=== PATIENT | female | born 1965 | race Caucasian/White ===

== ENCOUNTER 2017-05-26 06:03 | Emergency (ER) | payer OTHER ==
[~2017-05-26] VITALS: Ht 160 cm; Wt 77.1 kg
--- OUTSIDE RECORDS SUMMARY | 2017-05-26 06:12 | XMS REPORT ---
Author Author SHAQUILLE BEAN Organization [employer] Address Unknown Phone Unavailable Care Team Providers Care Supplies Packer Name Role Phone SHAQUILLE BEAN CP Unavailable Allergies, Adverse Reactions, Alerts Substance Reaction Event Type N.K.D.A. Info Not Available Non Drug Allergy Problems Problem Type Condition Code Onset Dates Condition Status Problem Left-sided low back pain with left-sided sciatica M54.42 Active Assessment Essential hypertension I10 Active Problem Essential hypertension I10 Active Medications Medication Code System Code Instructions Start Date End Date Status Dosage VitaMelts Vitamin C [facility] [address]15 60 MG Orally not defined Multi-Vitamin Gummies [facility] [address]010 - Orally not defined Metoprolol Tartrate [facility] [address]-81 25 MG Orally Twice a day 1/ 2 tablet Ranitidine Acid Coat Cutter [facility] [address]-98 150 Orally Twice a day 1 tablet as needed Estroven ND 0 not defined Procedures Procedure Coding System Code Date Office Visit, Est Pt., Level 3 CPT-4 75587 Feb 02, 2016 Vital Signs Date/Time: Feb 02, 2016 Cardiac Monitoring Heart Rate 72 bpm Weight 181.2 lbs Height 63 in BMI 32.09 Index Blood Pressure Diastolic 66 mmHg Blood Pressure Systolic 118 mmHg Results No Known Results Summary Purpose [employer] Submission
--- OUTSIDE RECORDS SUMMARY | 2017-05-26 06:12 | XMS REPORT ---
Author Author LUZMA ADKINS Organization [facility] Address [address] [place] [address] Care Team Providers Care Room Cooler Installer Name Role Phone LUZMA ADKINS Unavailable PROBLEMS Type Condition ICD9-CM Code [id number] Code Onset Dates Condition Status SNOMED Code Problem Essential hypertension I10 Active 42666385 Problem Left-sided low back pain with left-sided sciatica M54.42 Active 774025281 ALLERGIES Substance Reaction Event Type Date Status N.K.D.A. Unknown Non Drug Allergy Mar, Unknown SOCIAL HISTORY No smoking Hx information available PLAN OF CARE Activity Details Follow Up 1 Week Reason:if s/s worsen, off work until Friday VITAL SIGNS Height 63 in 2016-04-01 Weight 185.2 lbs 2016-04-01 Temperature 98.7 degrees Fahrenheit 2016-04-01 Heart Rate 75 bpm 2016-04-01 Respiratory Rate 18 2016-04-01 BMI 32.80 kg/m2 2016-04-01 Blood pressure systolic 128 mmHg 2016-04-01 Blood pressure diastolic 70 mmHg 2016-04-01 MEDICATIONS Medication Instructions Dosage Frequency Start Date End Date Duration Status Metoprolol Tartrate 25 MG Orally Twice a day 1/2 tablet 12h Active VitaMelts Vitamin C 60 MG Active Claritin 10 mg Orally Once a day 1 tablet 24h Mar, Active Ranitidine Acid Asbestos Surveyor 150 Orally Twice a day 1 tablet as needed 12h Active Estroven Active Multi-Vitamin Gummies - Active RESULTS Name Result Date Reference Range STREP A (IN HOUSE) 2016-04-01 STREP A negative Control positive Lot # [id number] Exp date 10/04/15 PROCEDURES Procedure Date Ordered Related Diagnosis Body Site STREP A ASSAY W/OPTIC Apr 01, 2016 Office Visit, Est Pt., Level 3 Apr 01, 2016 IMMUNIZATIONS No Known Immunizations
--- OUTSIDE RECORDS SUMMARY | 2017-05-26 06:12 | XMS REPORT ---
Author Author SHAQUILLE BEAN [facility] Address [address] [place] [address] Care Team Providers Care Food Service Aide Name Role Phone SHAQUILLE BEAN Unavailable PROBLEMS Type Condition ICD9-CM Code FLY35-CS Code Onset Dates Condition Status SNOMED Code Problem Essential hypertension I10 Active 87047194 Problem Left-sided low back pain with left-sided sciatica M54.42 Active 641501808 ALLERGIES No Known Allergies SOCIAL HISTORY No smoking Hx information available PLAN OF CARE VITAL SIGNS MEDICATIONS No Known Medications RESULTS No Results PROCEDURES No Known procedures IMMUNIZATIONS No Known Immunizations
--- OUTSIDE RECORDS SUMMARY | 2017-05-26 06:12 | XMS REPORT ---
Author Author SHAUQILLE BEAN [facility] Address [address] [place] [address] Care Team Providers Care Lay Out Technician Name Role Phone SHAQUILLE BEAN Unavailable PROBLEMS Type Condition ICD9-CM Code LME27-SP Code Onset Dates Condition Status SNOMED Code Problem Essential hypertension I10 Active 83053484 Problem Left-sided low back pain with left-sided sciatica M54.42 Active 477986063 ALLERGIES No Information SOCIAL HISTORY Never Assessed PLAN OF CARE VITAL SIGNS MEDICATIONS No Known Medications RESULTS Name Result Date Reference Range CBC 2016-08-26 WBC 9.1 3.4-10.8 RBC 4.90 3.77-5.28 Hemoglobin 13.2 11.1-15.9 Hematocrit 42.1 34.0-46.6 MCV 86 79-97 MCH 26.9 26.6-33.0 MCHC 31.4 31.5-35.7 RDW 13.5 12.3-15.4 Platelets 249 150-379 Neutrophils 67 Lymphs 24 Monocytes 6 Eos 3 Basos 0 Immature Cells Neutrophils (Absolute) 6.2 1.4-7.0 Lymphs (Absolute) 2.2 0.7-3.1 Monocytes(Absolute) 0.5 0.1-0.9 Eos (Absolute) 0.2 0.0-0.4 Baso (Absolute) 0.0 0.0-0.2 Immature Granulocytes 0 Immature Grans (Abs) 0.0 0.0-0.1 NRBC Hematology Comments: LIPID PANEL 2016-08-26 Cholesterol, Total 173 100-199 Triglycerides 146 0-149 HDL Cholesterol 56 >39 VLDL Cholesterol Javier 29 5-40 LDL Cholesterol Calc 88 0-99 Comment: CMP 2016-08-26 Glucose, Serum 98 65-99 BUN 14 6-24 Creatinine, Serum 0.58 0.57-1.00 eGFR If NonAfricn Am 109 >59 eGFR If Africn Am 126 >59 BUN/Creatinine Ratio 24 9-23 Sodium, Serum 139 134-144 Potassium, Serum 4.5 3.5-5.2 Chloride, Serum 101 96-106 Carbon Dioxide, Total 25 18-29 Calcium, Serum 9.2 8.7-10.2 Protein, Total, Serum 6.5 6.0-8.5 Albumin, Serum 4.2 3.5-5.5 Globulin, Total 2.3 1.5-4.5 A/G Ratio 1.8 1.2-2.2 Bilirubin, Total 0.3 0.0-1.2 Alkaline Phosphatase, S 56 39-117 AST (SGOT) 17 0-40 ALT (SGPT) 20 0-32 PROCEDURES Procedure Date Ordered Result Body Site LIPID PANEL August 26, 2016 COMPREHEN METABOLIC PANEL August 26, 2016 VENIPUNCT, ROUTINE* August 26, 2016 IMMUNIZATIONS No Known Immunizations MEDICAL (GENERAL) HISTORY Type Description Date Medical History heart murmur Medical History hypertension Surgical History appendectomy Surgical History cholecystectomy Surgical History tubal ligation Hospitalization History surgeries
--- OUTSIDE RECORDS SUMMARY | 2017-05-26 06:12 | XMS REPORT ---
Author Author Eliazar Chanel [facility] Address [address] [place], [place] [address] Care Team Providers Care Snack Bar Attendant Name Role Phone Eliazar Chanel PCP Unavailable Allergies and Adverse Reactions Name Reaction Notes NO KNOWN DRUG ALLERGIES Plan of Treatment Not available. Medications Active Name Start Date Estimated Completion Date SIG Comments Excedrin Migraine 250-250-65 mg oral tablet take 1 tablet by oral route daily Zantac 150 mg oral tablet take 1 tablet (150 mg) by oral route 2 times per day Women's Multivitamin Gummies 200 mcg oral tablet,chewable chew 2 tablets by oral route daily Estroven Mood & Memory 400 mcg oral tablet take 1 tablet by oral route daily Garcinia Cambogia 200-500 mcg-mg oral tablet take 2 tablets by oral route 2 times a day melatonin 3 mg oral tablet take 1 tablet by oral route daily diclofenac sodium 75 mg oral tablet,delayed release (DR/EC) 05/03/2015 take 1 tablet (75 mg) by oral route 2 times per day with food metoprolol tartrate 25 mg oral tablet 05/03/2015 10/30/2015 take 1/2 tablet by oral route twice daily for 30 days Name Start Date Expiration Date SIG Comments acebutolol 200 mg oral capsule 11/23/2009 12/23/2009 TAKE 1 CAPSULE BY MOUTH TWO TIMES A DAY metoprolol succinate 25 mg oral tablet extended release 24 hr 01/25/20112010 TAKE ONE TABLET BY MOUTH EVERY DAY alprazolam 0.5 mg oral tablet 01/25/2011 02/04/2011 TAKE ONE-HALF TO ONE TABLET BY MOUTH TWICE DAILY NEEDED Discontinued Name Start Date Discontinued Date SIG Comments metoprolol tartrate Oral 09/06/2010 metoprolol tartrate 25 mg oral tablet 12/13/2010 take 1/2 tablet (12.5 mg ) by oral route twice daily meloxicam 7.5 mg oral tablet 12/13/2010 01/22/2011 take 1 tablet by oral route 2 times a day with food diclofenac sodium 75 mg oral tablet,delayed release (DR/EC) 01/22/20112015 take 1 tablet (75 mg) by oral route 2 times per day Problem List Description Status Onset Anxiety Disorder Active Palpitations Active Cardiac murmur Active Vital Signs Date Time BP-Sys(mm[Hg] BP-Serena(mm[Hg]) HR(bpm) RR(rpm) Temp WT HT HC BMI BSA BMI Percentile O2 Sat(%) 05/03/2015 9:57:00 AM 130 mmHg 72 mmHg 69 bpm 20 rpm 98.2 F 190 lbs 63 in 33.66 kg/m2 1.96 m2 97 % 12/13/2010 8:44:00 AM 130 mmHg 74 mmHg 72 bpm 18 rpm 98.2 F 170 lbs 63 in 30.1138 kg/m 1.8514 m 09/06/2010 8:31:00 AM 130 mmHg 72 mmHg 68 bpm 16 rpm 99.1 F 171.5 lbs 10/17/2009 2:14:00 PM 112 mmHg 70 mmHg 72 bpm 18 rpm 99 F 162 lbs 63 in 28.6967 kg/m 1.8073 m Social History Name Description Comments Tobacco Former smoker stopped 10/22/10 Alcohol Use - Occasional 3-4 drinks per month Grown Children x2 Children Living with significant other x 7 yrs 3 times High school 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 degree experimented with illicit drugs in past Did not serve in UNEMPLOYEED History of Procedures Date Ordered Description Order Status 12/13/2010 12:00 AM LIPID PANEL Reviewed 12/13/2010 12:00 AM COMPREHEN METABOLIC PANEL Reviewed 12/13/2010 12:00 AM ASSAY OF TOTAL THYROXINE Reviewed 12/13/2010 12:00 AM ASSAY THYROID STIM HORMONE Reviewed 05/03/2015 12:00 AM RADEX HIP UNILATERAL COMPLETE MINIMUM 2 VIEWS Reviewed 10/17/2009 12:00 AM ASSAY OF GONADOTROPIN (LH) Reviewed 09/06/2010 12:00 AM CYTOPATH C/V THIN LAYER Reviewed 09/06/2010 12:00 AM MAMMOGRAM SCREENING Reviewed Results Summary Data and Description Results 12/13/2010 9:25 AM TRIGLYCERIDES 129.0 mg/dLCHOLESTEROL 217.0 mg/dLHDL 49.0 mg/ dLLDL (CALC) 142.0 mg/dLT4 7.40 ug/dLTSH 0.990 uIU/mLGLUCOSE 99.0 mg/dLSODIUM 139.0 mmol/LPOTASSIUM 4.50 mmol/LCHLORIDE 107.0 mmol/LCO2 23.0 mmol/LBUN 9.0 mg/ dLCREATININE 0.70 mg/dLSGOT/AST 22.0 IU/LSGPT/ALT 29.0 IU/LALK PHOS 62.0 IU/ LTOTAL PROTEIN 7.20 g/dLALBUMIN 4.40 g/dLTOTAL BILI 0.40 mg/dLCALCIUM 9.50 mg/ dLeGFR >60 mL/min/1.73 m2 History Of Immunizations Not available. History of Past Illness Name Date of Onset Comments Anxiety Disorder Palpitations Dysmenorrhea Oct 17 2009 2:17PM Left Eustachian Tube Dysfunction Oct 17 2009 2:17PM Tobacco use disorder Oct 17 2009 2:17PM Mitral Valve Prolapse Oct 17 2009 2:17PM Cardiac murmur Routine gynecological examination Sep 06 2010 8:31AM Palpitations Dec 13 2010 8:42AM Myalgia Dec 13 2010 8:42AM Left hip pain May 03 2015 9:59AM Payers Insurance Name Company Name Plan Name Plan Number Policy Number Policy Group Number Start Date [facility] [employer] [facility] [employer] [id number] N/A [employer] [id number] August History of Encounters Visit Date Visit Type Provider 05/03/2015 Office visit Eliazar Chanel DO 12/13/2010 Office visit Eliazar Chanel DO 09/06/2010 Office visit Patricia APARICIO 10/17/2009 Office visit Eliazar Chanel DO
--- OUTSIDE RECORDS SUMMARY | 2017-05-26 06:12 | XMS REPORT ---
Author Author SHAQUILLE BEAN [facility] Address [address] [place] [address] Care Team Providers Care Bridal Stylist Sales Consultant Name Role Phone SHAQUILLE BEAN Unavailable PROBLEMS Type Condition ICD9-CM Code [id number] Code Onset Dates Condition Status SNOMED Code Problem Essential hypertension I10 Active 82781074 Problem Left-sided low back pain with left-sided sciatica M54.42 Active 632419653 ALLERGIES No Known Allergies SOCIAL HISTORY No smoking Hx information available PLAN OF CARE VITAL SIGNS MEDICATIONS Medication Instructions Dosage Frequency Start Date End Date Duration Status Zostavax 02934 UNT/0.65ML as directed Apr, 1 dose Active RESULTS No Results PROCEDURES No Known procedures IMMUNIZATIONS No Known Immunizations
--- OUTSIDE RECORDS SUMMARY | 2017-05-26 06:12 | XMS REPORT ---
Author Eliazar De La Vega [facility] Address [address] [place], [place] [address] Care Team Providers Care Biomass Boiler Operator Name Role Phone Eliazar Chanel PCP Unavailable Allergies and Adverse Reactions Name Reaction Notes NO KNOWN DRUG ALLERGIES Plan of Treatment Planned Activity Comments Planned Date Planned Time Plan/Goal MRI LUMBAR SPINE W/O DYE 05/18/2015 12:00 AM Medications Active Name Start Date Estimated Completion [...] oral route twice daily for 30 days tramadol 50 mg oral tablet 05/18/2015 take 1 tablet by oral route every 8 hours as needed gabapentin 100 mg oral capsule 05/18/2015 take 1 capsule (100 mg) by oral route at bedtime for 1 week then 2 capsules at bedtime Name Start Date Expiration Date SIG Comments [...] Left hip pain May 03 2015 9:59AM Radiating back pain May 18 2015 12:23PM Payers Insurance Name Company Name Plan Name Plan Number Policy Number Policy Group Number Start Date [facility] [id number] N/A [employer] [id number] August History of Encounters Visit Date Visit Type Provider 05/03/2015 Office visit Eliazar Chanel DO 12/13/2010 Office visit Eliazar Chanel DO 09/06/2010 Office visit Patricia APARICIO 10/17/2009 Office visit Eliazar Chanel DO
--- OUTSIDE RECORDS SUMMARY | 2017-05-26 06:13 | XMS REPORT ---
Author Author SHAQUILLE BEAN [facility] Address [address] [place] [address] Care Team Providers Care Licensed Chemical Spray Technician Name Role Phone SHAQUILLE BEAN Unavailable PROBLEMS Type Condition ICD9-CM Code NMQ19-XV Code Onset Dates Condition Status SNOMED Code Problem Essential hypertension I10 Active 91473108 Problem Left-sided low back pain with left-sided sciatica M54.42 Active 813508945 ALLERGIES No Known Allergies SOCIAL HISTORY No smoking Hx information available PLAN OF CARE VITAL SIGNS MEDICATIONS No Known Medications RESULTS No Results PROCEDURES No Known procedures IMMUNIZATIONS No Known Immunizations
--- OUTSIDE RECORDS SUMMARY | 2017-05-26 06:13 | XMS REPORT ---
Author Author Eliazar Chanel [facility] Address [address] [place], [place] [address] Care Team Providers Care Track Maintainer Name Role Phone Eliazar Chanel PCP Unavailable [...] Policy Number Policy Group Number Start Date [facility] [employer] [facility] [employer] [id number] N/A [employer] [id number] August History of Encounters Visit Date Visit Type Provider 05/03/2015 Office visit Eliazar Chanel DO 12/13/2010 Office visit Eliazar Chanel DO 09/06/2010 Office visit Patricia APARICIO 10/17/2009 Office visit Eliazar Chanel DO
--- OUTSIDE RECORDS SUMMARY | 2017-05-26 06:13 | XMS REPORT | Continuity of Care Document ---
Author Author [facility] Organization [facility] Address Unknown Phone Unavailable Allergies There is no data. Medications There is no data. Problems Date Dx Coded Attending Type Code Diagnosis Diagnosed By 07/04/2015 KELLY LEONARD APRN Ot Z12.31 Procedures There is no data. Results There is no data. Encounters ACCT No. Visit Date/Time Discharge Status Pt. Type Provider Facility Loc./Unit Complaint [id number] 05/03/2015 10:24:56 05/03/2015 23:59:59 [facility] Outpatient Darío Eliazar [id number] 07/04/2015 10:05:00 07/04/2015 23:59:59 [facility] Outpatient KELLY LEONARD APRN [facility] RAD
--- OUTSIDE RECORDS SUMMARY | 2017-05-26 06:13 | XMS REPORT ---
Author Author YOLIE VIDAL Organization [facility] Address [address] [place] [address] Care Team Providers Care Sand Miller Name Role Phone YOLIE VIDAL Unavailable PROBLEMS Type Condition ICD9-CM Code NAR71-KY Code Onset Dates Condition Status SNOMED Code Problem Essential hypertension I10 Active 15192480 Problem Left-sided low back pain with left-sided sciatica M54.42 Active 462241150 Assessment Gastric reflux K21.9 Dec, Active 955028807 Assessment Throat pain R07.0 Dec, Active 477608232 ALLERGIES Substance Reaction Event Type Date Status N.K.D.A. Unknown Non Drug Allergy Dec, Unknown SOCIAL HISTORY No smoking Hx information available PLAN OF CARE VITAL SIGNS Height 63 in 2015-12-28 Weight 183 lbs 2015-12-28 Heart Rate 70 bpm 2015-12-28 Respiratory Rate 16 2015-12-28 BMI 32.41 kg/m2 2015-12-28 Blood pressure systolic 124 mmHg 2015-12-28 Blood pressure diastolic 68 mmHg 2015-12-28 MEDICATIONS Medication Instructions Dosage Frequency Start Date End Date Duration Status Metoprolol Tartrate 25 MG Orally Twice a day 1/2 tablet 12h Active Estroven Active RESULTS Name Result Date Reference Range TSH W/ FREE T4 2015-12-28 TSH 1.750 0.450-4.500 T4,Free(Direct) 1.04 0.82-1.77 H PYLORI (IN HOUSE) 2015-12-28 H. PYLORI negative Control + Lot # [id number] Exp date 08/2016 PROCEDURES Procedure Date Ordered Related Diagnosis Body Site ASSAY THYROID STIM HORMONE Dec 28, 2015 ASSAY OF FREE THYROXINE Dec 28, 2015 Office Visit, Est Pt., Level 3 Dec 28, 2015 VENIPUNCT, ROUTINE* Dec 28, 2015 IMMUNOASSAY,INFECTIOUS AGENT Dec 28, 2015 IMMUNIZATIONS No Known Immunizations
--- OUTSIDE RECORDS SUMMARY | 2017-05-26 06:13 | XMS REPORT ---
Author Author YOLIE VIDAL Organization [facility] Address [address] [place] [address] Care Team Providers Care Customer Specialist Name Role Phone YOLIE VIDAL Unavailable PROBLEMS Type Condition ICD9-CM Code [id number] Code Onset Dates Condition Status SNOMED Code Problem Essential hypertension I10 Active 95567604 Problem Left-sided low back pain with left-sided sciatica M54.42 Active 564509918 ALLERGIES Substance Reaction Event Type Date Status N.K.D.A. Unknown Non Drug Allergy Mar, Unknown SOCIAL HISTORY No smoking Hx information available PLAN OF CARE Activity Details Follow Up prn Reason: VITAL SIGNS Height 63 in 2016-04-11 Weight 186.4 lbs 2016-04-11 Temperature 98.5 degrees Fahrenheit 2016-04-11 Heart Rate 68 bpm 2016-04-11 Respiratory Rate 20 2016-04-11 Oximetry 96 % 2016-04-11 BMI 33.02 kg/m2 2016-04-11 Blood pressure systolic 124 mmHg 2016-04-11 Blood pressure diastolic 70 mmHg 2016-04-11 MEDICATIONS Medication Instructions Dosage Frequency Start Date End Date Duration Status Claritin 10 mg Orally Once a day 1 tablet 24h Mar, Active Metoprolol Tartrate 25 MG Orally Twice a day 1/2 tablet 12h Active VitaMelts Vitamin C 60 MG Active ProAir HFA 108 (90 Base) MCG/ACT Inhalation every 4 hrs 2 puffs as needed 4h Mar, Active Multi-Vitamin Gummies - Active Estroven Active Ranitidine Acid Private Household Worker 150 Orally Twice a day 1 tablet as needed 12h Active RESULTS No Results PROCEDURES Procedure Date Ordered Related Diagnosis Body Site MEASURE BLOOD OXYGEN LEVEL Apr 11, 2016 Office Visit, Est Pt., Level 3 Apr 11, 2016 THER/PROPH/DIAG INJ, SC/IM Apr 11, 2016 SOLUMEDROL (UP TO 125 MG) Apr 11, 2016 IMMUNIZATIONS Vaccine Route Administration Date Status SOLUMEDROL (UP TO 125 MG) IM Intramuscular Apr 11, 2016 Administered
--- OUTSIDE RECORDS SUMMARY | 2017-05-26 06:13 | XMS REPORT ---
Author Author Eliazar Chanel [facility] Address [address] [place], [place] [address] Care Team Providers Care Home Hospice Rn Name Role Phone Eliazar Chanel PCP Unavailable [...] RADEX HIP UNILATERAL COMPLETE MINIMUM 2 VIEWS Returned 10/17/2009 12:00 AM ASSAY OF GONADOTROPIN (LH) [...] Policy Number Policy Group Number Start Date [facility] [email or web address] [facility] [email or web address] [id number] N/A [employer] [id number] August History of Encounters Visit Date Visit Type Provider 05/03/2015 Office visit Eliazar Chanel DO 12/13/2010 Office visit Eliazar Chanel DO 09/06/2010 Office visit Patricia APARICIO 10/17/2009 Office visit Eliazar Chanel DO
[2017-05-26] MEDS ORDERED: KETOROLAC 30 MG/ML VIAL IVP STA (06:18)
[2017-05-26] MEDS ORDERED: fentaNYL INJECTION 100 MCG/2 ML AMP IVP STA ×2 (06:18→06:50)
[2017-05-26] MEDS ORDERED: NS IV 1000 ML 1,000 ML IV STA (06:18)
[2017-05-26] MEDS ORDERED: fentaNYL INJECTION 100 MCG/2 ML AMP ONE (06:19)
[2017-05-26] MEDS ORDERED: ONDANSETRON 4 MG/2 ML (SDV) Z0FRAN ONE (06:20)
[2017-05-26] MEDS ORDERED: KETOROLAC 30 MG/ML VIAL ONE (06:20)
[2017-05-26] MEDS ORDERED: NS IV 1000 ML 1,000 ML ONE (06:20)
[2017-05-26] MEDS ORDERED: ONDANSETRON 4 MG/2 ML (SDV) Z0FRAN IVP ONE ×2 (06:30→07:30)
[2017-05-26 06:31] LABS: COLOR,URINE YELLOW
--- NOTE | 2017-05-26 06:31 | ED GU-Female ---
General Stated Complaint: BACK PAIN Source: patient Exam Limitations: no limitations (DEMETRIA FLOYD MD) History of Present Illness Date Seen by Provider: May 26, 2017 Time Seen by Provider: 06:15 Initial Comments Here with report of left flank pain that radiates to the groin/urethral. Onset at 5 a.m. Never had pain like this before. States that she feels nauseated and feels like she has to urinate but can't. Denies fever or chills. She has not taken anything for this. Denies previous history of kidney stones. Timing/Duration: this morning Severity/Quality: moderate, severe, cramping, sharp, throbbing Location: left flank Radiation: groin, vaginal, urethral Activities at Onset: none Modifying Factors: Improves With Other (no aggravating or relieving factors) Associated Symptoms: dysuria, No fever/chills, lower back pain, No urinary frequency (DEMETRIA FLOYD MD) Allergies and Home Medications Allergies Coded Allergies: morphine (Verified Allergy, Intermediate, HIVES, 05/26/17) Home Medications Hydrocodone/Ibuprofen 1 Each Tablet, 1-2 EACH PO Q 4 HOURS , #20 Prescribed by: SEAN DAVALSO on 05/26/17 0729 Nitrofurantoin Monohyd/M-Cryst 100 Mg Capsule, 100 MG PO BID, #20 Prescribed by: SEAN DAVALOS on 05/26/17 0729 Ondansetron 4 Mg Tab.rapdis, 4 MG PO Q4H, #10 Prescribed by: SEAN DAVALOS on 05/26/17 0730 Tamsulosin HCl 0.4 Mg Cap, 0.4 MG PO DAILY, #10 Prescribed by: SEAN DAVALOS on 05/26/17 0729 Constitutional: see HPI, No chills, No fever EENTM: no symptoms reported Respiratory: no symptoms reported, No short of breath, No wheezing Cardiovascular: no symptoms reported, No chest pain, No palpitations Gastrointestinal: see HPI, No diarrhea, nausea, No vomiting Genitourinary: see HPI, flank pain, pain : No Musculoskeletal: see HPI, back pain, No neck pain Skin: no symptoms reported (DEMETRIA FLOYD MD) All Other Systemes Reviewed Negative Unless Noted: Yes (DEMETRIA FLOYD MD) Past Oooiuxh-Isgxhm-Ncntif Hx Patient Social History Alcohol Use: Denies Use Recreational Drug Use: No Smoking Status: Never a Smoker Type Used: Smokeless Tobacco Recent Foreign Travel: No Contact w/Someone Who Travel: No (DEMETRIA FLOYD MD) Surgeries History of Surgeries: Yes Surgeries: Appendectomy, Gallbladder, Tubal Ligation (DEMETRIA FLOYD MD) Respiratory History of Respiratory Disorde: No (DEMETRIA FLOYD MD) Cardiovascular History of Cardiac Disorders: No (DEMETRIA FLOYD MD) Neurological History of Neurological Disord: No (DEMETRIA FLOYD MD) Genitourinary History of Genitourinary Disor: No (DEMETRIA FLOYD MD) Gastrointestinal History of Gastrointestinal Di: No (DEMETRIA FLOYD MD) Musculoskeletal History of Musculoskeletal Dis: No (DEMETRIA FLOYD MD) Cancer History of Cancer: No (DEMETRIA FLOYD MD) Psychosocial History of Psychiatric Problem: No (DEMETRIA FLOYD MD) Reviewed Nursing Assessment Reviewed/Agree w Nursing PMH: Yes (DEMETRIA FLOYD MD) Family Medical History Significant Family History: Hypertension (DEMETRIA FLOYD MD) Physical Exam Vital Signs Vital Sign - Last 12Hours 05/26/17 06:13 Temp 98.4 Pulse 58 Resp 20 B/P (MAP) 126/60 (82) Pulse Ox 99 O2 Delivery Room Air (AB,SEAN K DO) Vital Signs Capillary Refill : (DEMETRIA FLOYD MD) General Appearance: WD/WN, mild distress (flank pain and left side) HEENT: PERRL/EOMI, pharynx normal Neck: full range of motion, supple Cardiovascular: regular rate, rhythm, no murmur Respiratory: lungs clear, normal breath sounds Gastrointestinal: non tender, soft Back: normal inspection, no CVA tenderness, no vertebral tenderness Extremities: non-tender, normal inspection Neurologic/Psychiatric: alert, oriented x 3 Skin: normal color, warm/dry (DEMETRIA FLOYD MD) Progress/Results/Core Measures Suspected Sepsis SIRS Temperature: Pulse: Respiratory Rate: Blood Pressure / Mean: (DEMETRIA FLOYD MD) Results/Orders Lab Results Laboratory Tests Test 05/26/17 06:16 05/26/17 06:26 Range/Units Urine Color YELLOW Urine Clarity CLEAR Urine pH 5 5-9 Urine Specific [place] 1.025 H 1.016-1.022 Urine Protein 2+ H NEGATIVE Urine Glucose (UA) NEGATIVE NEGATIVE Urine Ketones NEGATIVE NEGATIVE Urine Nitrite NEGATIVE NEGATIVE Urine Bilirubin NEGATIVE NEGATIVE Urine Urobilinogen NORMAL NORMAL MG/DL Urine Leukocyte Esterase 2+ H NEGATIVE Urine RBC (Auto) 5+ H NEGATIVE Urine RBC 25-50 H /HPF Urine WBC 2-5 /HPF Urine Squamous Epithelial Cells 10-25 H /HPF Urine Crystals NONE /LPF Urine Bacteria FEW H /HPF Urine Casts NONE /LPF Urine Mucus MODERATE H /LPF Urine Culture Indicated YES White Blood Count 10.1 4.3-11.0 10^3/uL Red Blood Count 4.94 4.35-5.85 10^6/uL Hemoglobin 13.9 11.5-16.0 G/DL Hematocrit 41 35-52 % Mean Corpuscular Volume 83 80-99 FL Mean Corpuscular Hemoglobin 28 25-34 PG Mean Corpuscular Hemoglobin Concent 34 32-36 G/DL Red Cell Distribution Width 13.5 10.0-14.5 % Platelet Count 291 130-400 10^3/uL Mean Platelet Volume 10.1 7.4-10.4 FL Neutrophils (%) (Auto) 57 42-75 % Lymphocytes (%) (Auto) 34 12-44 % Monocytes (%) (Auto) 7 0-12 % Eosinophils (%) (Auto) 1 0-10 % Basophils (%) (Auto) 0 0-10 % Neutrophils # (Auto) 5.8 1.8-7.8 X 10^3 Lymphocytes # (Auto) 3.5 1.0-4.0 X 10^3 Monocytes # (Auto) 0.7 0.0-1.0 X 10^3 Eosinophils # (Auto) 0.1 0.0-0.3 10^3/uL Basophils # (Auto) 0.0 0.0-0.1 10^3/uL Sodium Level 140 135-145 MMOL/L Potassium Level 3.3 L 3.6-5.0 MMOL/L Chloride Level 106 98-107 MMOL/L Carbon Dioxide Level 20 L 21-32 MMOL/L Anion Gap 14 5-14 MMOL/L Blood Urea Nitrogen 15 7-18 MG/DL Creatinine 0.78 0.60-1.30 MG/DL Estimat Glomerular Filtration Rate > 60 BUN/Creatinine Ratio 19 Glucose Level 133 H 70-105 MG/DL Calcium Level 9.1 8.5-10.1 MG/DL Total Bilirubin 0.6 0.1-1.0 MG/DL Aspartate Amino Transf (AST/SGOT) 22 5-34 U/L Alanine Aminotransferase (ALT/SGPT) 24 0-55 U/L Alkaline Phosphatase 62 40-136 U/L Total Protein 7.0 6.4-8.2 GM/DL Albumin 4.1 3.2-4.5 GM/DL (SEAN DAVALOS DO) My Orders Orders - SEAN DAVALOS DO Fentanyl Injection (Sublimaze Injection (05/26/17 06:50) Morphine Injection (Morphine Injection (05/26/17 07:26) Alfuzosin (Not Stocked) (Uroxatral (Not (05/26/17 07:30) Ondansetron Injection (Zofran Injectio (05/26/17 07:30) Diphenhydramine Injection (Benadryl Inje (05/26/17 07:45) Famotidine Injection (Pepcid Injection) (05/26/17 07:45) Diphenhydramine Injection (Benadryl Inje (05/26/17 07:37) (SEAN DAVALOS DO) Medications Given in ED Current Medications Medications Dose Ordered Sig/Jaspreet Route Start Time Stop Time Status Last Admin Dose Admin Diphenhydramine HCl 50 mg ONCE ONCE IVP 05/26/17 07:45 05/26/17 07:46 DC 05/26/17 07:43 50 MG Famotidine 40 mg ONCE ONCE IVP 05/26/17 07:45 05/26/17 07:46 DC 05/26/17 07:49 40 MG Ondansetron HCl 4 mg ONCE ONCE IVP 05/26/17 06:30 05/26/17 06:31 DC 05/26/17 06:27 4 MG Ondansetron HCl 8 mg ONCE ONCE IVP 05/26/17 07:30 05/26/17 07:31 DC 05/26/17 07:41 8 MG (SEAN DAVALOS DO) Vital Signs/I&O Vital Sign - Last 12Hours 05/26/17 06:13 Temp 98.4 Pulse 58 Resp 20 B/P (MAP) 126/60 (82) Pulse Ox 99 O2 Delivery Room Air (SEAN DAVALOS DO) Vital Signs/I&O Capillary Refill : (DEMETRIA FLOYD MD) Progress Note : Progress Note Seen and evaluated. IV, labs, UA, UCG. Normal saline 1 L bolus. Fentanyl 50 g IV, Toradol 30 mg IV and Zofran [address] scan kidney stone protocol as well as KUB. 0630: Care transferred to Dr. Davalos pending labs and radiology studies. (DEMETRIA FLOYD MD) Progress Note : Progress Note 06--ASSUMED CARE FROM DR. FLOYD, LAB AND CT PENDING. HAD ONLY PARTIAL RELIEF OF PAIN WITH FENTANYL GAVE MORPHINE 5 MG--PT STATES SHE HAS HAD IT BEFORE AND NEVER HAD ANY PROBLEMS-- PT IMMEDIATELY DEVELOPED HIVES TO RIGHT ARM -FROM IV SITE IN RIGHT AC SPACE UP TO RIGHT SHOULDER. NO DIFFICULTY BREATHING OR WHEEZING. NO SWELLING ANYWHERE. GIVEN IV BENADRYL AND PEPCID--HIVES RESOLVED WILL ADD THIS TO ALLERGY LIST (SEAN DAVALOS DO) Diagnostic Imaging Comments CT ABDOMEN/PELVIS--5 MM STONE AT LEFT UVJ WITH MINIMAL LEFT HYDRONEPHROSIS, DIVERTICULAR DISEASE, PUNCTATE CALCIFICATION RIGHT KIDNEY--PER RADIOLOGIST REPORT @ 1923 KUB--CALCIFICATION IN LEFT PELVIS, PENDING RADIOLOGIST REVIEW Reviewed: Reviewed by Me (SEAN DAVALOS DO) Departure Impression Impression: Primary Impression: Left ureteral calculus Additional Impression: NEW ALLERGY TO MORPHINE Disposition: HOME, SELF-CARE Condition: Improved Departure-Patient Inst. Referrals: LORA MAYORGA DO (PCP) Primary Care Physician SKYLA BARGER MD Patient Instructions: Adverse Drug Reactions, Adult (DC), Drug Allergy, Kidney Stones (DC) Add. Discharge Instructions: LOTS OF CLEAR LIQUIDS STRAIN ALL URINE, RETURN ANY STONES TO DR'S OFFICE TAKE BENADRYL EVERY 4 HOURS NEEDED FOR RASH AND ITCHING RETURN TO ER IF SYMPTOMS WORSEN Scripts Ondansetron (Zofran Odt) 4 Mg Tab.rapdis 4 MG PO Q4H for Nausea/Vomiting, #10 TAB Prov: SEAN DAVALOS DO 05/26/17 Nitrofurantoin Monohyd/M-Cryst (Macrobid 100 mg Capsule) 100 Mg Capsule 100 MG PO BID, #20 CAP Prov: SEAN DAVALOS DO 05/26/17 Hydrocodone/Ibuprofen (Hydrocodone-Ibuprofen 5-200 mg) 1 Each Tablet 1-2 EACH PO Q 4 HOURS for Pain, #20 TAB Prov: SEAN DAVALOS DO 05/26/17 Tamsulosin HCl (Flomax) 0.4 Mg Cap 0.4 MG PO DAILY, #10 CAP Prov: SEAN DAVALOS DO 05/26/17 DEMETRIA FLOYD MD May 26, 2017 06:31 SEAN DAVALOS DO May 26, 2017 06:46
[2017-05-26 06:32] LABS: BILIRUBIN,URINE NEGATIVE (NEGATIVE); CLARITY,URINE CLEAR; GLUCOSE, URINE (UA) NEGATIVE (NEGATIVE); KETONES,URINE NEGATIVE (NEGATIVE); LEUKOCYTE ESTERASE ,URINE 2+ (NEGATIVE); NITRITE,URINE NEGATIVE (NEGATIVE); PH,URINE 5 (5-9); PROTEIN,URINE 2+ (NEGATIVE); UROBILINOGEN,URINE NORMAL (NORMAL)
[2017-05-26 06:33] LABS: BACTERIA,URINE FEW /HPF; RBC,URINE 25-50 /HPF
[2017-05-26 06:39] LABS: BASOPHILS % (AUTO) 0 % (0-10); EOSINOPHILS # (AUTO) 0.1 10^3/uL (0.0-0.3); EOSINOPHILS % (AUTO) 1 % (0-10); HEMATOCRIT 41 % (35-52); HEMOGLOBIN 13.9 G/DL (11.5-16.0); LYMPHOCYTES # (AUTO) 3.5 X 10^3 (1.0-4.0); LYMPHOCYTES % (AUTO) 34 % (12-44); MEAN CORPUSCULAR HEMOGLOBIN 28 PG (25-34); MEAN CORPUSCULAR HGB CONC 34 G/DL (32-36); MEAN CORPUSCULAR VOLUME 83 FL (80-99); MEAN PLATELET VOLUME 10.1 FL (7.4-10.4); MONOCYTES # (AUTO) 0.7 X 10^3 (0.0-1.0); MONOCYTES % (AUTO) 7 % (0-12); NEUTROPHILS # (AUTO) 5.8 X 10^3 (1.8-7.8); NEUTROPHILS % (AUTO) 57 % (42-75); PLATELET COUNT 291 10^3/uL (130-400); RED BLOOD COUNT 4.94 10^6/uL (4.35-5.85); RED CELL DISTRIBUTION WIDTH 13.5 % (10.0-14.5); WHITE BLOOD COUNT 10.1 10^3/uL (4.3-11.0)
[2017-05-26 07:01] LABS: ALANINE AMINOTRANSFERASE 24 U/L (0-55); ALBUMIN 4.1 GM/DL (3.2-4.5); ALKALINE PHOSPHATASE 62 U/L (40-136); BILIRUBIN,TOTAL 0.6 MG/DL (0.1-1.0); BUN/CREATININE RATIO 19; CALCIUM 9.1 MG/DL (8.5-10.1); CARBON DIOXIDE 20 MMOL/L (21-32); CHLORIDE 106 MMOL/L (98-107); CREATININE SERUM 0.78 MG/DL (0.60-1.30); GFR ESTIMATED > 60; GLUCOSE 133 MG/DL (70-105); POTASSIUM 3.3 MMOL/L (3.6-5.0); SODIUM 140 MMOL/L (135-145)
--- NOTE | 2017-05-26 07:15 | Diagnostic Imaging Report ---
PROCEDURE: CT urinary tract, rule out kidney stone. TECHNIQUE: Multiple contiguous axial images were obtained through the abdomen and pelvis without the use of intravenous contrast. INDICATION: Left-sided abdominal pain. History of cholecystectomy and appendectomy. COMPARISON: None FINDINGS: The lung bases are clear. The heart is normal in size. No pericardial effusion is seen. The liver demonstrates no focal lesions. Cholecystectomy clips are noted. There is mild prominence of the common bile duct, likely from cholecystectomy changes. The spleen appears normal. The pancreas is unremarkable. The adrenal glands are normal. There is a punctate nonobstructing calculus in the right kidney, with no hydronephrosis. The left kidney demonstrates minimal hydronephrosis and hydroureter, with a obstructing calculus seen at the left ureterovesicular junction measuring approximately 5 mm in size (image 129 series 2). The urinary bladder is decompressed without internal calcification seen. The bowel loops are nondistended. No evidence of obstruction is seen. There is diverticulosis of the descending colon without evidence of diverticulitis. IMPRESSION:. 1. A 5 mm calculus at the left ureterovesicular junction with minimal left hydroureteronephrosis. 2. Punctate nonobstructing calculus in the right kidney. 3. Diverticulosis of the descending colon without diverticulitis. Dictated by: Dictated on workstation # [id number]
[2017-05-26] MEDS ORDERED: morphine INJ 10 MG/ML 1ML (SYR OR VIAL) IVP STA (07:26)
[2017-05-26] MEDS ORDERED: NITR-65 PO (07:29)
[2017-05-26] MEDS ORDERED: HYDR-3990 PO (07:29)
[2017-05-26] MEDS ORDERED: TAMS0.4C98 PO (07:29)
[2017-05-26] MEDS ORDERED: ONDA4TAB8 PO (07:30)
[2017-05-26] MEDS ORDERED: ALFUZOSIN HCL 10 MG TAB (UROXATRAL) PO SCH (07:30)
[2017-05-26] MEDS ORDERED: diphenhydrAMINE 50 MG/ML INJ (BENADRYL) ONE (07:37)
[2017-05-26] MEDS ORDERED: diphenhydrAMINE 50 MG/ML INJ (BENADRYL) IVP ONE (07:45)
[2017-05-26] MEDS ORDERED: FAMOTIDINE 20MG/2ML IV (PEPCID) IVP ONE (07:45)
--- NOTE | 2017-05-26 08:00 | Diagnostic Imaging Report ---
PATIENT HISTORY: Left sided abdominal pain. TECHNIQUE: Two frontal views of the abdomen COMPARISON: CT of the abdomen from the same day FINDINGS: The bowel loops are nondistended. No evidence of obstruction is seen. There is no large collection of free air. Cholecystectomy clips are noted. There is a punctate calcification in the inferior right kidney. A small calcification is seen in the left pelvis, may represent the ureterovesicular stone seen on the prior CT. No acute osseous abnormality seen. IMPRESSION: 1. Calcification in the left pelvis, likely represents the left ureterovesicular calculus. 2. No evidence of bowel obstruction or large collection of free air. Dictated by: Dictated on workstation # [id number]
[2017-05-26 08:16] VITALS: BP 125/68
== END 2017-05-26 08:14 | disposition home or self-care (01) ==
LOC: EDUNIT# 06:03 → ER 06:08
DX: N20.1 Calculus of ureter (principal); Z88.5 Allergy status to narcotic agent; Z98.51 Tubal ligation status; Z90.49 Acquired absence of other specified parts of digestive tract
CPT/HCPCS: 36415; 74018; 74176; 80053; 81000; 84703; 85025; 87088; 87186; 96361; 96374; 96375; 96376

== ENCOUNTER → 2017-08-22 | Outpatient (CLI) | payer OTHER ==
[~2017-08-22] MED LIST: HYDR-3990 PO; NITR-65 PO; ONDA4TAB8 PO; TAMS0.4C98 PO
--- NOTE | 2017-08-22 13:45 | Diagnostic Imaging Report ---
INDICATION: Left calf pain TECHNIQUE: Grayscale with color-flow and Doppler waveform evaluation of the left lower extremity deep venous system. CORRELATION STUDY: None FINDINGS: Color and grayscale sonographic images demonstrate no intraluminal defect within the visualized portion of the common femoral, superficial femoral and/or popliteal veins to suggest thrombus formation. These vessels demonstrate normal response to compression and augmentation. No soft tissue fluid collection. IMPRESSION: 1. Negative for deep venous thrombosis of the left leg. Dictated by: Dictated on workstation # [id number]
== END ==
LOC: RAD 12:59
PROVIDERS: ATTEND Nurse Practitioner Family
DX: M79.605 Pain in left leg (principal)

== ENCOUNTER → 2017-08-29 | Outpatient (CLI) | payer OTHER | LOC: RAD 08:21 | PROVIDERS: ATTEND Nurse Practitioner Family | DX: Z12.31 Encounter for screening mammogram for malignant neoplasm of breast (principal); M79.622 Pain in left upper arm ==

== ENCOUNTER 2018-01-12 05:53 | Outpatient (CLI) | payer OTHER ==
[~2018-01-12] VITALS: Ht 160 cm; Wt 77.1 kg
[2018-01-15] MEDS ORDERED: DICY20TA10 PO (12:16)
[2018-01-15] MEDS ORDERED: OMEP40CA36 PO (12:16)
[2018-01-15] MEDS ORDERED: SOY155CA PO (12:16)
[2018-01-15] MEDS ORDERED: METO-333 PO (12:16)
[2018-01-15] MEDS ORDERED: MULT-141 PO (12:16)
== END 2018-01-15 12:19 | disposition home or self-care (01) ==
LOC: PREOP 05:53
PROVIDERS: ATTEND Surgery
DX: Z01.818 Encounter for other preprocedural examination (principal)

== ENCOUNTER 2018-01-19 08:38 | Day surgery (SDC) | payer OTHER ==
[~2018-01-19] VITALS: Ht 160 cm; Wt 77.1 kg
[~2018-01-19 08:38] MED LIST changes: +DICY20TA10 PO; +METO-333 PO; +MULT-141 PO; +OMEP40CA36 PO; +SOY155CA PO
[2018-01-19 08:45] VITALS: BP 122/67
[2018-01-19] MEDS: NS IV 500 ML 500 ML IV PRN ×2 (08:50→10:01)
[2018-01-19] MEDS ORDERED: fentaNYL INJECTION 100 MCG/2 ML AMP IVP ONE (09:00)
[2018-01-19] MEDS ORDERED: HURRICAINE EXT TUBE (BENZOCAINE) XX PRN (09:00)
[2018-01-19] MEDS ORDERED: MIDAZOLAM 2 MG/2 ML (VERSED) VIAL IVP ONE (09:00)
[2018-01-19] MEDS ORDERED: MIDAZOLAM 2 MG/2 ML (VERSED) VIAL ONE ×4 (09:32→11:18)
[2018-01-19] MEDS ORDERED: fentaNYL INJECTION 100 MCG/2 ML AMP ONE ×2 (09:33→11:19)
[2018-01-19] MEDS ORDERED: NS IV 500 ML 500 ML ONE (09:34)
--- NOTE | 2018-01-19 10:27 | History & Physicial ---
History of Present Illness History of Present Illness Reason for visit/HPI to undergo an upper endoscopy regarding symptoms of gastroesophageal reflux and colonoscopy for screening purposes. She reports a family history of polyps. Date of Admission 01/19/18 Date Seen by a Provider: Jan 19, 2018 Time Seen by a Provider: 10:25 I consulted on this patient on 01/19/18 10:09 Attending Physician Divine Champion MD Admitting Physician Reid Mcknight MD Consult Allergies and Home Medications Allergies Coded Allergies: morphine (Verified Allergy, Intermediate, HIVES, 05/26/17) Home Medications Dicyclomine HCl 20 Mg Tablet, 20 MG PO QID, (Reported) Metoprolol Tartrate 25 Mg Tablet, 12.5 MG PO BID, (Reported) take 1/2 of 25mg tab Multivit with Calcium,Iron,Min 1 Each Tablet, 1 EACH PO DAILY, (Reported) Omeprazole 40 Mg Capsule.dr, 40 MG PO DAILY, (Reported) Soy Isofla/Blk Cohosh/Mag Bark 155 Mg Capsule, 155 MG PO DAILY, (Reported) Patient Home Medication List Home Medication List Reviewed: Yes Past Awipdiq-Ifsmng-Ffbyol Hx Patient Social History Alcohol Use: Rarely Uses Recreational Drug Use: No Smoking Status: Current Everyday Smoker Type Used: Cigarettes, Smokeless Tobacco Recent Foreign Travel: No Contact w/other who traveled: No Recent Hopitalizations: No Recent Infectious Disease Expo: No Seasonal Allergies Seasonal Allergies: No Surgeries Yes Appendectomy, Gallbladder, Tubal Ligation Respiratory No Cardiovascular No Heart Murmur, Palpitations Neurological No Reproductive System Hx Reproductive Disorders: No [employer] History: Tubal Ligation Genitourinary No Gastrointestinal No Gastroesophageal Reflux Musculoskeletal No Endocrine History of Endocrine Disorders: No HEENT History of HEENT Disorders: No Cancer No Psychosocial History of Psychiatric Problem: No Integumentary History of Skin or Integumenta: No Family Medical History Significant Family History: Hypertension Review of Systems Constitutional: no symptoms reported EENTM: no symptoms reported Respiratory: no symptoms reported Cardiovascular: no symptoms reported Gastrointestinal: see HPI Genitourinary: no symptoms reported Musculoskeletal: no symptoms reported Skin: no symptoms reported Psychiatric/Neurological: No Symptoms Reported Physical Exam Vital Signs Vital Signs - First Documented 01/19/18 08:45 Temp 97.8 Pulse 64 Resp 18 B/P (MAP) 122/67 (85) Pulse Ox 96 O2 Delivery Room Air Capillary Refill : Height, Weight, BMI Height: 5'3.00" Weight: 170lbs. 0.0oz. 77.810021jo; 30.1 BMI Method:Stated General Appearance: No Apparent Distress HEENT: TMs Normal Neck: Normal Inspection Respiratory: Lungs Clear Cardiovascular: Regular Rate, Rhythm Gastrointestinal: Non Tender, Soft Rectal: Deferred Extremity: Normal Inspection Neurologic/Psychiatric: Alert, Oriented x3 Skin: Warm/Dry Assessment/Plan Assessment and Plan lady with symptoms of GERD and a family history of polyps. For screening colonoscopy and upper endoscopy. Admission Diagnosis Admission Status: Other (Outpt Proc) DIVINE CHAMPION MD Jan 19, 2018 10:27
--- NOTE | 2018-01-19 10:27 | Conscious Sedation/ASA ---
Conscious Sedation Pre-Proced Time 10:27 ASA Score 2 For ASA 3 and 4: Consider anesthesia and medical clearance. Also, for patients with a history of failed moderate sedation consider anesthesia. Airway Lungs Heart ASA score ASA 1: a normal healthy patient ASA 2: a patient with a mild systemic disease (mid diabetes, controlled hypertension, obesity ASA 3: a patient with a severe systemic disease that limits activity (angina , COPD, prior Myocardial infarction) ASA 4: a patient with an incapacitating disease that is a constant threat to life (CHF, renal failure) ASA 5: a moribund patient not expected to survive 24 hrs. (ruptured aneurysm) ASA 6: a declared brain patient whose organs are being harvested. For emergent operations, add the letter E after the classification Mallampati Classification Grade 1 Sedation Plan Discussed options with patient/fam The patient is an appropriate candidate to undergo the planned procedure, sedation, and anesthesia. The patient immediately re-assessed prior to indication. DIVINE CHAMPION MD Jan 19, 2018 10:27
--- OUTSIDE RECORDS SUMMARY | 2018-01-19 10:34 | XMS REPORT ---
Author Author SHAQUILLE BEAN [facility] Address [address] [place] [id number] Care Team Providers Care Clinical Trial Associate Name Role Phone SHAQUILLE BEAN Unavailable PROBLEMS Type Condition ICD9-CM Code [id number] Code Onset Dates Condition Status SNOMED Code Problem Renal calculi N20.0 Active 42572221 Problem Essential hypertension I10 Active 71729946 Problem Left-sided low back pain with left-sided sciatica M54.42 Active 839910758 ALLERGIES Substance Reaction Event Type Date Status Morphine Sulfate Unknown Drug Allergy May, Active ENCOUNTERS Encounter Location Date Diagnosis [facility] [address] [id number] Jun, Asymptomatic microscopic hematuria R31.21 [facility] [address] [id number] Jun, [facility] [address] [place] [id number] [place] [address] [id number] May, Hematuria, unspecified type R31.9 [facility] [id number] [place] [address] [id number] May, Influenza J11.1 [place] [id number] [place] [address] [id number] May, Fever, unspecified fever cause R50.9 ; Essential hypertension I10 and Renal calculi N20.0 [facility] [id number] [place] [address] [id number] Apr, [facility] [address] [phone] Apr, Essential hypertension I10 [facility] [id number] [place] [address] [id number] Sep, Essential hypertension I10 [address] [id number] August, Essential hypertension I10 [facility] [id number] [place] [address] [id number] Jul, Essential hypertension I10 [facility] [id number] [place] [address] [id number] Apr, [facility] [id number] [place] [address] [id number] Apr, [facility] [id number] [place] [address] [id number] Apr, [facility] [id number] [place] [address] [id number] Mar, Cough R05 [place] [address] [id number] Mar, Sore throat J02.9 and Post-nasal drip R09.82 [facility] [id number] [place] [address] [id number] Jan, Essential hypertension I10 [facility] [id number] [place] [address] [id number] Jan, [facility] [id number] [place] [address] [id number] Dec, Gastric reflux K21.9 and Throat pain R07.0 [facility] [id number] [place] [address] [id number] Dec, [facility] [id number] [place] [address] [id number] August, Left-sided low back pain with left-sided sciatica M54.42 [facility] [id number] [place] [address] [id number] August, Shingles (herpes zoster) polyneuropathy B02.23 and Itching L29.9 [facility] [address] [id number] [phone] Jul, Acute bacterial conjunctivitis of left eye H10.022 [facility] [id number] [place] [address] [id number] 07 Jun, 2016 Routine gynecological examination Z01.419 ; Encounter for Papanicolaou smear for cervical cancer screening Z12.4 and Breast cancer screening Z12.39 [facility] [address] [facility] [id number] [place] [phone] Jun, Left-sided low back pain with left-sided sciatica M54.42 [facility] [address] [facility] [id number] [place] [phone] 16 May, 2015 Left-sided low back pain with left-sided sciatica M54.42 IMMUNIZATIONS No Known Immunizations SOCIAL HISTORY Never Assessed REASON FOR VISIT CHM- Htn, Passed Kidney Stone passed on last Friday , Pt c/o waking up multiple times to pee and some leakage Zandra BEJARANO PLAN OF CARE Activity Details Follow Up prn Reason:worsening VITAL SIGNS Height 63 in 2017-06-02 Weight 174.6 lbs 2017-06-02 Temperature 101.4 degrees Fahrenheit 2017-06-02 Heart Rate 96 bpm 2017-06-02 Respiratory Rate 18 2017-06-02 BMI 30.93 kg/m2 2017-06-02 Blood pressure systolic 130 mmHg 2017-06-02 Blood pressure diastolic 80 mmHg 2017-06-02 MEDICATIONS Medication Instructions Dosage Frequency Start Date End Date Duration Status Metoprolol Tartrate 25 MG Orally Twice a day 1/2 tablet 12h Active Estroven Active Claritin 10 mg Orally Once a day 1 tablet 24h Mar, Active Tamiflu 75 MG Orally Twice a day 1 capsule 12h 12 May, 2017 5 day(s) Active Multi-Vitamin Gummies - Active VitaMelts Vitamin C 60 MG Active Ranitidine Acid Washer Engineer Helper 150 Orally Twice a day 1 tablet as needed 12h Active RESULTS No Results PROCEDURES Procedure Date Ordered Result Body Site URINE CULTURE/COLONY COUNT Jun 02, 2017 URINALYSIS, AUTO, W/O SCOPE Jun 02, 2017 INSTRUCTIONS MEDICATIONS ADMINISTERED No Known Medications MEDICAL (GENERAL) HISTORY Type Description Date Medical History heart murmur Medical History hypertension Surgical History appendectomy Surgical History cholecystectomy Surgical History tubal ligation Hospitalization History surgeries
--- OUTSIDE RECORDS SUMMARY | 2018-01-19 10:35 | XMS REPORT ---
Author Author SHAQUILLE BEAN [facility] Address [address] [place] [address] Care Team Providers Care Shag Truck Driver Name Role Phone SHAQUILLE BEAN Unavailable PROBLEMS Type Condition ICD9-CM Code [id number] Code Onset Dates Condition Status SNOMED Code Problem Renal calculi N20.0 Active 57103322 Problem Essential hypertension I10 Active 22346181 Problem Left-sided low back pain with left-sided sciatica M54.42 Active 998934112 ALLERGIES No Known Allergies ENCOUNTERS Encounter Location Date Diagnosis [address] [id number] Jul, [address] [id number] Jul, [address] [id number] Jun, Asymptomatic microscopic hematuria R31.[address] [id number] Jun, [address] [id number] May, Hematuria, unspecified type R31.[address] [id number] May, Influenza J11.[address] [id number] May, Fever, unspecified fever cause R50.9 ; Essential hypertension I10 and Renal calculi N20.[address] [id number] Apr, [facility] [address] [phone] Apr, Essential hypertension I10 [address], [place] [id number] Sep, Essential hypertension I10 [facility] [place] [id number] [place] [address] [id number] August, Essential hypertension I10 [facility] [place] [id number] [place] [address] [id number] Jul, Essential hypertension I10 [facility] [place] [id number] [place] [address] [id number] Apr, [facility] [place] [id number] [place] [address] [id number] Apr, [facility] [place] [id number] [place] [address] [id number] Apr, [facility] [place] [id number] [place] [address] [id number] Mar, Cough R05 [facility] [id number] [place] [address] [id number] Mar, Sore throat J02.9 and Post-nasal drip R09.82 [facility] [id number] [place] [address] [id number] Jan, Essential hypertension I10 [facility] [id number] [place] [address] [id number] Jan, [facility] [id number] [place] [address] [id number] Dec, Gastric reflux K21.9 and Throat pain R07.0 [facility] [id number] [place] [address] [id number] Dec, [facility] [id number] [place] [address] [id number] August, Left-sided low back pain with left-sided sciatica M54.42 [facility] [id number] [place] [address] [id number] August, Shingles (herpes zoster) polyneuropathy B02.23 and Itching L29.9 [facility] [address] [address] Jul, Acute bacterial conjunctivitis of left eye H10.022 [facility] 120 [facility] [id number] [place] [id number] 07 Jun, 2015 Routine gynecological examination Z01.419 ; Encounter for Papanicolaou smear for cervical cancer screening Z12.4 and Breast cancer screening Z12.[address] [id number] [place] [id number] Jun, Left-sided low back pain with left-sided sciatica M54.[address] [id number] [id number] May, Left-sided low back pain with left-sided sciatica M54.42 IMMUNIZATIONS No Known Immunizations SOCIAL HISTORY Never Assessed REASON FOR VISIT Lab Results Marika DUMONT PLAN OF CARE Activity Details Follow Up 1 Year Reason:htn VITAL SIGNS Height 63 in 2016-10-07 Weight 185.6 lbs 2016-10-07 Temperature 99.0 degrees Fahrenheit 2016-10-07 Heart Rate 64 bpm 2016-10-07 Respiratory Rate 18 2016-10-07 BMI 32.87 kg/m2 2016-10-07 Blood pressure systolic 122 mmHg 2016-10-07 Blood pressure diastolic 67 mmHg 2016-10-07 MEDICATIONS Medication Instructions Dosage Frequency Start Date End Date Duration Status VitaMelts Vitamin C 60 MG Active Metoprolol Tartrate 25 MG Orally Twice a day 1/2 tablet 12h Active Multi-Vitamin Gummies - Active Ranitidine Acid Lvn Lpn 150 Orally Twice a day 1 tablet as needed 12h Active Claritin 10 mg Orally Once a day 1 tablet 24h 12 Mar, 2016 Active Estroven Active RESULTS No Results PROCEDURES No Known procedures INSTRUCTIONS MEDICATIONS ADMINISTERED No Known Medications MEDICAL (GENERAL) HISTORY Type Description Date Medical History heart murmur Medical History hypertension Surgical History appendectomy Surgical History cholecystectomy Surgical History tubal ligation Hospitalization History surgeries
--- OUTSIDE RECORDS SUMMARY | 2018-01-19 10:35 | XMS REPORT ---
Author Author SHAQUILLE BEAN [facility] Address [address] [place] [address] Care Team Providers Care Office Supervisor Name Role Phone SHAQUILLE BEAN Unavailable PROBLEMS Type Condition ICD9-CM Code NJX29-GR Code Onset Dates Condition Status SNOMED Code Problem Renal calculi N20.0 Active 40409124 Problem Essential hypertension I10 Active 81772157 Problem Left-sided low back pain with left-sided sciatica M54.42 Active 109588283 ALLERGIES Substance Reaction Event Type Date Status Morphine Sulfate hives Drug Allergy May, Active ENCOUNTERS Encounter Location Date Diagnosis [facility] [address] [id number] Jun, Asymptomatic microscopic hematuria R31.21 [facility] [address] [id number] Jun, [facility] [id number] [place] [address] [id number] May, Hematuria, unspecified type R31.9 [facility] [id number] [place] [address] [id number] May, Influenza J11.1 [facility] [id number] [place] [address] [id number] May, Fever, unspecified fever cause R50.9 ; Essential hypertension I10 and Renal calculi N20.0 [facility] [id number] [place] [id number] Apr, [facility] [address] [id number] Apr, Essential hypertension I10 [facility] [id number] [place] [address] [id number] Sep, Essential hypertension I10 [address] [id number] August, Essential hypertension I10 [facility] [id number] [place] [address] [id number] Jul, Essential hypertension I10 [facility] [id number] [place] [address] [id number] Apr, [facility] [id number] [place] [address] [id number] Apr, [facility] [address] [id number] Apr, [facility] [id number] [place] [address] [id number] Mar, Cough R05 [facility] [address] [id number] Mar, Sore throat J02.9 and Post-nasal drip R09.82 [facility] [id number] [place] [address] [id number] Jan, Essential hypertension I10 [facility] [id number] [place] [address] [id number] Jan, [facility] [id number] [place] [address] [id number] Dec, Gastric reflux K21.9 and Throat pain R07.0 [facility] [id number] [place] [address] [id number] Dec, [facility] [id number] [place] [address] [id number] August, Left-sided low back pain with left-sided sciatica M54.42 [facility] [id number] [place] [address] [id number] August, Shingles (herpes zoster) polyneuropathy B02.23 and Itching L29.9 [facility] [address] [id number] [phone] Jul, Acute bacterial conjunctivitis of left eye H10.022 [facility] [id number] [place] [address] [id number] 07 Jun, 2015 Routine gynecological examination Z01.419 ; Encounter for Papanicolaou smear for cervical cancer screening Z12.4 and Breast cancer screening Z12.39 [facility] 120 W [facility] [id number] [place] [id number] Jun, Left-sided low back pain with left-sided sciatica M54.42 [facility] 120 [address] [facility] [id number] [place] [id number] May, Left-sided low back pain with left-sided sciatica M54.42 IMMUNIZATIONS No Known Immunizations SOCIAL HISTORY Never Assessed REASON FOR VISIT Headache, cough non productive, temp up to 102 on Friday night, body aches, chills all for past 4 days, Conchis RN PLAN OF CARE Activity Details Follow Up prn Reason: VITAL SIGNS Height 63 in 2017-06-05 Weight 178.4 lbs 2017-06-05 Temperature 99.1 degrees Fahrenheit 2017-06-05 Heart Rate 87 bpm 2017-06-05 Respiratory Rate 16 2017-06-05 BMI 31.60 kg/m2 2017-06-05 Blood pressure systolic 110 mmHg 2017-06-05 Blood pressure diastolic 70 mmHg 2017-06-05 MEDICATIONS Medication Instructions Dosage Frequency Start Date End Date Duration Status Estroven Active Multi-Vitamin Gummies - Active Claritin 10 mg Orally Once a day 1 tablet 24h Mar, Active VitaMelts Vitamin C 60 MG Active Metoprolol Tartrate 25 MG Orally Twice a day 1/2 tablet 12h Active Tamiflu 75 MG Orally Twice a day 1 capsule 12h May, 5 day(s) Not-Taking Ranitidine Acid Parachute/Combatant Diver Officer 150 Orally Twice a day 1 tablet as needed 12h Active RESULTS No Results PROCEDURES No Known procedures INSTRUCTIONS MEDICATIONS ADMINISTERED No Known Medications MEDICAL (GENERAL) HISTORY Type Description Date Medical History heart murmur Medical History hypertension Surgical History appendectomy Surgical History cholecystectomy Surgical History tubal ligation Hospitalization History surgeries
--- OUTSIDE RECORDS SUMMARY | 2018-01-19 10:35 | XMS REPORT ---
Author Author SHAQUILLE BEAN [facility] Address [address] [place] [address] Care Team Providers Care Air Marshal Name Role Phone SHAQUILLE BEAN Unavailable PROBLEMS Type Condition ICD9-CM Code GCQ18-IQ Code Onset Dates Condition Status SNOMED Code Problem Renal calculi N20.0 Active 29982471 Problem Essential hypertension I10 Active 53418371 Problem Left-sided low back pain with left-sided sciatica M54.42 Active 631510516 ALLERGIES No Information ENCOUNTERS Encounter Location Date Diagnosis [facility] [address] [id number] Jun, Asymptomatic microscopic hematuria R31.21 [facility] [address] [id number] Jun, [facility] [address] [id number] May, Hematuria, unspecified type R31.9 [facility] [address] [id number] May, Influenza J11.1 [facility] [id number] [place] [address] [id number] May, Fever, unspecified fever cause R50.9 ; Essential hypertension I10 and Renal calculi N20.0 [facility] [id number] [place] [address] [id number] Apr, [facility] [address] [id number] Apr, Essential hypertension I10 [facility] [address] [id number] Sep, Essential hypertension I10 [facility] [address] [id number] August, Essential hypertension I10 [facility] [id number] [place] [address] [id number] Jul, Essential hypertension I10 [facility] [id number] [place] [address] [id number] Apr, [facility] [id number] [place] [address] [id number] Apr, [facility] [id number] [place] [address] [id number] Apr, [facility] [id number] [place] [address] [id number] Mar, Cough R05 [facility] [id number] [place] [address] [id number] Mar, Sore throat J02.9 and Post-nasal drip R09.82 [facility] [id number] [place] [address] [id number] Jan, Essential hypertension I10 [facility] [id number] [place] [address] [id number] Jan, [facility] [address] [id number] Dec, Gastric reflux K21.9 and Throat pain R07.0 [id number] [place] [address] [id number] Dec, [facility] [id number] [place] [address] [id number] August, Left-sided low back pain with left-sided sciatica M54.42 [id number] [place] [address] [id number] August, Shingles (herpes zoster) polyneuropathy B02.23 and Itching L29.9 [facility] [id number] [place] [phone] Jul, Acute bacterial conjunctivitis of left eye H10.022 [id number] [place] [address] [id number] 07 Jun, 2015 Routine gynecological examination Z01.419 ; Encounter for Papanicolaou smear for cervical cancer screening Z12.4 and Breast cancer screening Z12.39 [place] [address] [address] [facility] [id number] [place] [id number] Jun, Left-sided low back pain with left-sided sciatica M54.42 [facility] [address] [facility] [id number] [place] [id number] May, Left-sided low back pain with left-sided sciatica M54.42 IMMUNIZATIONS No Known Immunizations SOCIAL HISTORY Never Assessed REASON FOR VISIT follow up UA after kidney stone. devyn Chaparro PLAN OF CARE VITAL SIGNS MEDICATIONS No Known Medications RESULTS Name Result Date Reference Range UA LONG DIP (IN HOUSE) 2017-06-17 Lot # [id number] Exp date 08/06 Clarity clear Color yellow Odor no GLU neg DIEGO neg KET neg SG >=1.030 BLO 2+ pH 5.5 Protein 1+ URO 0.2 NIT neg NORMAN neg Lot # Exp date UA W/ MICROSCOPY 2017-06-17 COLOR YELLOW YELLOW APPEARANCE CLOUDY CLEAR SPECIFIC GRAVITY 1.034 1.001-1.035 PH 5.5 5.0-8.0 GLUCOSE NEGATIVE NEGATIVE BILIRUBIN NEGATIVE NEGATIVE KETONES NEGATIVE NEGATIVE OCCULT BLOOD 1+ NEGATIVE PROTEIN 1+ NEGATIVE NITRITE NEGATIVE NEGATIVE LEUKOCYTE ESTERASE NEGATIVE NEGATIVE WBC 0-5 < OR=5 RBC 10-20 < OR=2 SQUAMOUS EPITHELIAL CELLS > OR=28 < OR=5 BACTERIA NONE SEEN NONE SEEN HYALINE CAST NONE SEEN NONE SEEN PROCEDURES Procedure Date Ordered Result Body Site URINALYSIS, AUTO, W/O SCOPE Jun 17, 2017 URINALYSIS, AUTO W/SCOPE Jun 17, 2017 INSTRUCTIONS MEDICATIONS ADMINISTERED No Known Medications MEDICAL (GENERAL) HISTORY Type Description Date Medical History heart murmur Medical History hypertension Surgical History appendectomy Surgical History cholecystectomy Surgical History tubal ligation Hospitalization History surgeries
--- OUTSIDE RECORDS SUMMARY | 2018-01-19 10:35 | XMS REPORT ---
Author Author SHAQUILLE BEAN [facility] Address [address] [place] [address] 7[address] Care Team Providers Care Pit Clerk Name Role Phone SHAQUILLE BEAN Unavailable PROBLEMS Type Condition ICD9-CM Code STA62-FI Code Onset Dates Condition Status SNOMED Code Problem Renal calculi N20.0 Active 16870780 Problem Essential hypertension I10 Active 08625393 Problem Left-sided low back pain with left-sided sciatica M54.42 Active 147601053 ALLERGIES Substance Reaction Event Type Date Status Morphine Sulfate hives Drug Allergy Jun, Active ENCOUNTERS Encounter Location Date Diagnosis [facility] [address] [id number] Jun, Asymptomatic microscopic hematuria R31.21 [facility] [address] [id number] Jun, [facility] [id number] [place] [address] [id number] May, Hematuria, unspecified type R31.9 [facility] [id number] [place] [address] [id number] May, Influenza J11.1 [facility] [id number] [place] [address] [id number] May, Fever, unspecified fever cause R50.9 ; Essential hypertension I10 and Renal calculi N20.0 [facility] [id number] [place] [address] [id number] Apr, [facility] [address] [phone] Apr, Essential hypertension I10 [facility] [id number] [place] [address] [id number] Sep, Essential hypertension I10 [address] [id number] August, Essential hypertension I10 [facility] [id number] [place] [address] [id number] Jul, Essential hypertension I10 [facility] [id number] [place] [address] [id number] Apr, [facility] [id number] [place] [address] [id number] Apr, [facility] [id number] [place] [address] [id number] Apr, [facility] [id number] [place] [address] [id number] Mar, Cough R05 [place] [address] [id number] Mar, Sore throat J02.9 and Post-nasal drip R09.82 [facility] [id number] [place] [address] [id number] Jan, Essential hypertension I10 [facility] [id number] [place] [address] [id number] Jan, [facility] [id number] [place] [address] [id number] Dec, Gastric reflux K21.9 and Throat pain R07.0 [facility] [id number] [place] [address] [id number] Dec, [facility] [id number] [place] [address] [id number] August, Left-sided low back pain with left-sided sciatica M54.42 [facility] [id number] [place] [address] [id number] August, Shingles (herpes zoster) polyneuropathy B02.23 and Itching L29.9 [facility] [address] [id number] [phone] Jul, Acute bacterial conjunctivitis of left eye H10.022 [facility] [id number] [place] [address] [id number] 07 Jun, 2016 Routine gynecological examination Z01.419 ; Encounter for Papanicolaou smear for cervical cancer screening Z12.4 and Breast cancer screening Z12.39 [facility] [address] [facility] [id number] [place] [id number] Jun, Left-sided low back pain with left-sided sciatica M54.42 [facility] [address] [facility] [id number] [place] [id number] May, Left-sided low back pain with left-sided sciatica M54.42 IMMUNIZATIONS No Known Immunizations SOCIAL HISTORY Never Assessed REASON FOR VISIT Hematuria recheck Zandra BEJARANO PLAN OF CARE Activity Details Follow Up 4 Weeks Reason:hematuria VITAL SIGNS Height 63 in 2017-06-30 Weight 184 lbs 2017-06-30 Heart Rate 68 bpm 2017-06-30 Respiratory Rate 16 2017-06-30 BMI 32.59 kg/m2 2017-06-30 Blood pressure systolic 130 mmHg 2017-06-30 Blood pressure diastolic 80 mmHg 2017-06-30 MEDICATIONS Medication Instructions Dosage Frequency Start Date End Date Duration Status Estroven Active VitaMelts Vitamin C 60 MG Active Claritin 10 mg Orally Once a day 1 tablet 24h Mar, Active Metoprolol Tartrate 25 MG Orally Twice a day 1/2 tablet 12h Active Multi-Vitamin Gummies - Active Ranitidine Acid Care Analyst 150 Orally Twice a day 1 tablet as needed 12h Active RESULTS Name Result Date Reference Range UA LONG DIP (IN HOUSE) 2017-06-30 Lot # [id number] Exp date 01/2018 Clarity clear Color yellow Odor no GLU neg DIEGO neg KET neg SG 1.025 BLO 1+ pH 6.0 Protein neg URO 0.2 NIT neg NORMAN neg Lot # Exp date PROCEDURES Procedure Date Ordered Result Body Site URINALYSIS, AUTO, W/O SCOPE June 30, 2017 INSTRUCTIONS MEDICATIONS ADMINISTERED No Known Medications MEDICAL (GENERAL) HISTORY Type Description Date Medical History heart murmur Medical History hypertension Surgical History appendectomy Surgical History cholecystectomy Surgical History tubal ligation Hospitalization History surgeries
--- OUTSIDE RECORDS SUMMARY | 2018-01-19 10:35 | XMS REPORT ---
Author Author SHAQUILLE BEAN [facility] Address [address] [place] [address] Care Team Providers Care Acoustic Engineer Name Role Phone SHAQUILLE BEAN Unavailable PROBLEMS Type Condition ICD9-CM Code TOT91-VB Code Onset Dates Condition Status SNOMED Code Problem Renal calculi N20.0 Active 76072223 Problem Essential hypertension I10 Active 57072477 Problem Left-sided low back pain with left-sided sciatica M54.42 Active 860833693 ALLERGIES No Information ENCOUNTERS Encounter Location Date Diagnosis [facility] [address] [id number] Jun, Asymptomatic microscopic hematuria R31.21 [facility] [address] [id number] Jun, [facility] [address] [id number] May, Hematuria, unspecified type R31.9 [facility] [address] [id number] May, Influenza J11.1 [facility] [id number] [place] [address] [id number] May, Fever, unspecified fever cause R50.9 ; Essential hypertension I10 and Renal calculi N20.0 [facility] [id number] [place] [id number] Apr, [facility] [address] [id number] Apr, Essential hypertension I10 [facility] [address] [id number] Sep, Essential hypertension I10 [facility] [address] [id number] August, Essential hypertension I10 [facility] [id number] [place] [address] [id number] Jul, Essential hypertension I10 [facility] [id number] [place] [address] [id number] Apr, [facility] [id number] [place] [address] [id number] Apr, [facility] [id number] [place] [address] [id number] Apr, [facility] [id number] [place] [address] [id number] Mar, Cough R05 [facility] [id number] [place] [address] [id number] Mar, Sore throat J02.9 and Post-nasal drip R09.82 [facility] [id number] [place] [address] [id number] Jan, Essential hypertension I10 [facility] [id number] [place] [address] [id number] Jan, [facility] [address] [id number] Dec, Gastric reflux K21.9 and Throat pain R07.0 [place] [id number] [place] [address] [id number] Dec, [facility] [id number] [place] [address] [id number] August, Left-sided low back pain with left-sided sciatica M54.42 [place] [id number] [place] [address] [id number] August, Shingles (herpes zoster) polyneuropathy B02.23 and Itching L29.9 [facility] [id number] [place] [phone] Jul, Acute bacterial conjunctivitis of left eye H10.022 [place] [id number] [place] [address] [id number] 07 Jun, 2015 Routine gynecological examination Z01.419 ; Encounter for Papanicolaou smear for cervical cancer screening Z12.4 and Breast cancer screening Z12.39 [place] [address] [id number] [place] [phone] Jun, Left-sided low back pain with left-sided sciatica M54.42 [facility] [address] [facility] [id number] [place] [id number] May, Left-sided low back pain with left-sided sciatica M54.42 IMMUNIZATIONS No Known Immunizations SOCIAL HISTORY Never Assessed REASON FOR VISIT premed for dental procedure PLAN OF CARE VITAL SIGNS MEDICATIONS Medication Instructions Dosage Frequency Start Date End Date Duration Status Amoxicillin 500 mg Orally one time dose before dental procedure 2 capsules Apr, Apr, 0 days Active RESULTS No Results PROCEDURES No Known procedures INSTRUCTIONS MEDICATIONS ADMINISTERED No Known Medications MEDICAL (GENERAL) HISTORY Type Description Date Medical History heart murmur Medical History hypertension Surgical History appendectomy Surgical History cholecystectomy Surgical History tubal ligation Hospitalization History surgeries
--- NOTE | 2018-01-19 10:59 | Endo Procedure Record ---
Endo Procedure Report Date of Procedure Last Colonoscopy: No Jan 19, 2018 Surgeon (s) DIVINE CHAMPION MD Post Procedure/Op Diagnosis EGD: Severe distal gastritis and duodenitis Colonoscopy: 1 mm polyp at the mid rectum. Very few sigmoid diverticulae Procedure Performed EGD with antral biopsy for H. pylori Colonoscopy to cecum Hot biopsy polypectomy Description of Procedure Anesthesia Type: Conscious Sedation Specimen(s) collected/removed rectal polyp Description of the Procedure indication for the procedures: This lady came in for an upper endoscopy to evaluate symptoms of gastroesophageal reflux and concomitant screening colonoscopy. She reported a family history of polyps. Informed consent was obtained after reviewing the procedures in detail. Description of the procedures: EGD/antral biopsy: She was placed in left lateral decubitus position and her vital signs were monitored. Conscious sedation was achieved using Versed and fentanyl. The flexible gastroscope was then introduced down the esophagus, past the stomach and into the proximal duodenum. Findings: Esophagus: normal Stomach: Severe distal gastritis without any ulceration. Biopsy for H. pylori was obtained. Duodenum: Changes of duodenitis were found along the first part. She tolerated the procedure well and was turned around in preparation for colonoscopy Impression: Symptoms of reflux disease. Gastritis and duodenitis. H. pylori status pending. Colonoscopy/polypectomy: Digital rectal examination was unremarkable. The colonoscope was then introduced in the rectum and advanced easily to the cecum by the quality of bowel preparation was excellent. The scope was then withdrawn slowly and the mucosa examined in a systematic fashion. Findings: 1. 2 mm polyp at the mid rectum, there was excised with hot biopsy forceps 2. Very few sigmoid diverticulae She tolerated the procedures well and was taken back to the nursing area in a stable condition. Impression: Symptoms of reflux disease. Gastritis and duodenitis. H. pylori status pending Small rectal polyp excised. Recommend screening colonoscopy in 5 years Copy Copies To 1: CARRINGTON FLORES MD, XAVIER M MD Jan 19, 2018 10:59
--- NOTE | 2018-01-19 11:01 | Discharge Inst-Simple/Standard ---
Discharge Inst-Standard Discharge Medications New, Converted or Re-Newed RX: Other Patient Instructions/Follow Up Plan of Care/Instructions/FU: repeat colonoscopy in 5 years Activity as Tolerated: Yes Discharge Diet: No Restrictions DIVINE CHAMPION MD Jan 19, 2018 11:01
[2018-01-19 11:05] VITALS: BP 122/69
[2018-01-19] MEDS ORDERED: HURRICAINE EXT TUBE (BENZOCAINE) ONE (11:19)
[2018-01-19 11:35] VITALS: BP 120/68
== END 2018-01-19 11:45 | disposition home or self-care (01) ==
LOC: ENDO 08:38
PROVIDERS: ATTEND Surgery
DX: Z12.11 Encounter for screening for malignant neoplasm of colon (principal); K62.1 Rectal polyp; K57.30 Diverticulosis of large intestine without perforation or abscess without bleeding; K29.70 Gastritis, unspecified, without bleeding; K29.80 Duodenitis without bleeding; R01.1 Cardiac murmur, unspecified; R00.2 Palpitations; K21.9 Gastro-esophageal reflux disease without esophagitis; F17.210 Nicotine dependence, cigarettes, uncomplicated; Z83.71 Family history of colonic polyps; Z79.899 Other long term (current) drug therapy

== ENCOUNTER 2018-04-28 22:53 | Day surgery (SDC) | payer OTHER ==
[~2018-04-28] VITALS: Ht 160 cm; Wt 80.4 kg
[2018-04-28] MEDS ORDERED: NITROGLYCERIN 0.4 MG SL TABS BTL 25'S SL PRN (23:30)
[2018-04-28] MEDS ORDERED: ASPIRIN 81 MG CHEW (CHILDREN'S ASA) PO ONE (23:30)
[2018-04-28 23:33] LABS: BASOPHILS % (AUTO) 0 % (0-10); EOSINOPHILS # (AUTO) 0.3 10^3/uL (0.0-0.3); EOSINOPHILS % (AUTO) 3 % (0-10); HEMATOCRIT 40 % (35-52); HEMOGLOBIN 13.8 G/DL (11.5-16.0); LYMPHOCYTES # (AUTO) 3.2 X 10^3 (1.0-4.0); LYMPHOCYTES % (AUTO) 35 % (12-44); MEAN CORPUSCULAR HEMOGLOBIN 29 PG (25-34); MEAN CORPUSCULAR HGB CONC 34 G/DL (32-36); MEAN CORPUSCULAR VOLUME 84 FL (80-99); MEAN PLATELET VOLUME 9.8 FL (7.4-10.4); MONOCYTES # (AUTO) 0.7 X 10^3 (0.0-1.0); MONOCYTES % (AUTO) 8 % (0-12); NEUTROPHILS # (AUTO) 5.1 X 10^3 (1.8-7.8); NEUTROPHILS % (AUTO) 55 % (42-75); PLATELET COUNT 264 10^3/uL (130-400); RED BLOOD COUNT 4.79 10^6/uL (4.35-5.85); RED CELL DISTRIBUTION WIDTH 13.3 % (10.0-14.5); WHITE BLOOD COUNT 9.3 10^3/uL (4.3-11.0)
[2018-04-28 23:42] LABS: INR 0.8 (0.8-1.4); PROTHROMBIN TIME PATIENT 11.5 SEC (12.2-14.7)
[2018-04-28 23:59] LABS: ALANINE AMINOTRANSFERASE 26 U/L (0-55); ALBUMIN 4.4 GM/DL (3.2-4.5); ALKALINE PHOSPHATASE 71 U/L (40-136); AMYLASE 67 U/L (25-125); BILIRUBIN,TOTAL 0.3 MG/DL (0.1-1.0); BUN/CREATININE RATIO 23; CALCIUM 9.9 MG/DL (8.5-10.1); CARBON DIOXIDE 23 MMOL/L (21-32); CHLORIDE 105 MMOL/L (98-107); CREATINE KINASE 95 U/L (29-168); CREATININE SERUM 0.79 MG/DL (0.60-1.30); GFR ESTIMATED > 60; GLUCOSE 92 MG/DL (70-105); LIPASE 67 U/L (8-78); MAGNESIUM 2.3 MG/DL (1.8-2.4); POTASSIUM 3.8 MMOL/L (3.6-5.0); SODIUM 139 MMOL/L (135-145); TOTAL PROTEIN 7.3 GM/DL (6.4-8.2)
[2018-04-29] VITALS (10 sets, daily range): BP systolic 119–138; BP diastolic 55–73
[2018-04-29 00:08] LABS: CREATINE KINASE MB 0.9 NG/ML (<6.6); MYOGLOBIN SERUM 31.4 NG/ML (10.0-92.0)
[2018-04-29] MEDS ORDERED: IOHEXOL 350 MG/ML 150 ML (OMNIPAQUE 350) VIAL IV ONE (00:30)
[2018-04-29] MEDS ORDERED: NS 100 ML (IVPB) BAG IV ONE (00:30)
[2018-04-29] MEDS ORDERED: RECEIVED CONTRAST (Hold Metformin) IV SCH (00:30)
[2018-04-29] MEDS ORDERED: KETOROLAC 30 MG/ML VIAL IVP ONE (02:00)
[2018-04-29] MEDS ORDERED: PANTOPRAZOLE 40 MG (PROTONIX) VIAL IV ONE (02:00)
[2018-04-29] MEDS ORDERED: 1/2 NS IV SOLUTION 1,000 ML IV ONE (03:29)
[2018-04-29] MEDS ORDERED: PATIENT MAY USE OWN MEDS, ALL PO SCH ×2 (03:45→17:45)
[2018-04-29] MEDS: 1/2 NS IV SOLUTION 1,000 ML IV SCH ×2 (04:00→13:50)
[2018-04-29] MEDS ORDERED: morphine INJ 4 MG/ML 1 ML (VIAL/SYRINGE) IV PRN (06:00)
[2018-04-29] MEDS ORDERED: NITROGLYCERIN 0.4 MG SL TABS BTL 25'S SL PRN (06:00)
[2018-04-29] MEDS ORDERED: ONDANSETRON 4 MG/2 ML (SDV) Z0FRAN IV PRN (06:00)
[2018-04-29 06:49] LABS: BASOPHILS % (AUTO) 0 % (0-10); EOSINOPHILS # (AUTO) 0.3 10^3/uL (0.0-0.3); EOSINOPHILS % (AUTO) 4 % (0-10); HEMATOCRIT 40 % (35-52); HEMOGLOBIN 13.3 G/DL (11.5-16.0); LYMPHOCYTES # (AUTO) 2.5 X 10^3 (1.0-4.0); LYMPHOCYTES % (AUTO) 35 % (12-44); MEAN CORPUSCULAR HEMOGLOBIN 28 PG (25-34); MEAN CORPUSCULAR HGB CONC 33 G/DL (32-36); MEAN CORPUSCULAR VOLUME 84 FL (80-99); MONOCYTES # (AUTO) 0.6 X 10^3 (0.0-1.0); MONOCYTES % (AUTO) 8 % (0-12); NEUTROPHILS # (AUTO) 3.9 X 10^3 (1.8-7.8); NEUTROPHILS % (AUTO) 54 % (42-75); PLATELET COUNT 233 10^3/uL (130-400); RED BLOOD COUNT 4.79 10^6/uL (4.35-5.85); RED CELL DISTRIBUTION WIDTH 13.4 % (10.0-14.5); WHITE BLOOD COUNT 7.3 10^3/uL (4.3-11.0)
[2018-04-29 07:05] LABS: INR 0.9 (0.8-1.4); PROTHROMBIN TIME PATIENT 12.6 SEC (12.2-14.7)
[2018-04-29 07:18] LABS: MYOGLOBIN SERUM 33.3 NG/ML (10.0-92.0)
[2018-04-29 07:22] LABS: CHOLESTEROL 193 MG/DL (< 200); HDL CHOLESTEROL 51 MG/DL (40-60); TRIGLYCERIDES 148 MG/DL (<150); VLDL CHOLESTEROL 30 MG/DL (5-40)
[2018-04-29 07:45] LABS: ALANINE AMINOTRANSFERASE 24 U/L (0-55); ALBUMIN 3.9 GM/DL (3.2-4.5); ALKALINE PHOSPHATASE 63 U/L (40-136); BILIRUBIN,TOTAL 0.4 MG/DL (0.1-1.0); BUN/CREATININE RATIO 21; CALCIUM 9.2 MG/DL (8.5-10.1); CARBON DIOXIDE 23 MMOL/L (21-32); CHLORIDE 107 MMOL/L (98-107); CREATININE SERUM 0.68 MG/DL (0.60-1.30); GFR ESTIMATED > 60; GLUCOSE 89 MG/DL (70-105); POTASSIUM 3.8 MMOL/L (3.6-5.0); SODIUM 139 MMOL/L (135-145); TOTAL PROTEIN 6.3 GM/DL (6.4-8.2)
[2018-04-29] MEDS ORDERED: FLU QUADRIvalent (5+ YOA) 2018-2019 (AFLURIA) 0.5 ML IM ONE (08:00)
--- NOTE | 2018-04-29 08:13 | Diagnostic Imaging Report ---
INDICATION: Chest pain. EXAMINATION: Portable chest at 11:52 p.m. FINDINGS: Heart size and pulmonary vascularity are normal. Lungs are clear. There are no effusions or pneumothoraces. IMPRESSION: Negative chest. Dictated by: Dictated on workstation # [id number]
--- NOTE | 2018-04-29 08:46 | Diagnostic Imaging Report ---
PROCEDURE: CT angiography of the chest with contrast. TECHNIQUE: Multiple contiguous axial images were obtained through the chest after uneventful bolus administration of intravenous contrast. 2D reconstructed CTA MIP acquisitions were also performed. INDICATION: Chest pain. No prior studies are available for comparison. FINDINGS: Evaluation of the pulmonary arterial system is without evidence of thromboembolism. No filling defects are seen within central, lobar or segmental branches. The thoracic aorta is normal in caliber. No dissection is seen. No pericardial or pleural fluid is identified. No axillary, hilar or mediastinal lymphadenopathy is identified. Pulmonary parenchymal evaluation does show some mild centrilobular emphysematous changes. No parenchymal mass, infiltrate or nodule is seen. The upper abdomen does show low density throughout the liver consistent with hepatic steatosis. The gallbladder is surgically absent. IMPRESSION: 1. No evidence of pulmonary embolism or thoracic aortic dissection. Dictated by: Dictated on workstation # [id number]
[2018-04-29] MEDS ORDERED: ASPIRIN E.C. 81 MG (ECOTRIN) TAB PO SCH (09:00)
[2018-04-29] MEDS ORDERED: PANTOPRAZOLE 40 MG (PROTONIX) VIAL IV SCH (09:00)
[2018-04-29] MEDS ORDERED: RANI150T90 PO (09:37)
[2018-04-29] MEDS ORDERED: DICY20TA10 PO (09:37)
--- NOTE | 2018-04-29 09:38 | NUR ---
WENT OVER THE EXT MED HX WITH THE PATIENT, SHE VERIFIED HOW SHE IS TAKING THEM. SHE STATES SHE IS NO LONGER TAKING THE OMEPRAZOLE 40MG THAT WAS FILLED 01-29-18 FOR 90 DAYS, SHE IS NOW TAKING ZANTAC 150MG BID OTC. SHE ALSO TAKES A MTV AND ESTROVEN DAILY OTC.
[2018-04-29] MEDS ORDERED: ACETAMINOPHEN 325 MG TABLET PO NR (13:25)
--- NOTE | 2018-04-29 14:12 | History & Physical-Hospitalist ---
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 She reports that yesterday she returned to her home after work. She fed the dogs and prepared to relax. She got a sharp pain in the manubrium area. This continued there is also some radiation to the jaw. There has been no previous history of heart disease. She is perimenopausal. Her initial workup in the emergency room had a negative troponin. She reports that she has had short episodes of this pain since admission. Date Seen 04/29/18 Time Seen by a Provider: 14:05 Attending Physician Reid Mcknight MD PCP Reid Mcknight MD Referring Physician Date of Admission Apr 29, 2018 at 02:00 Home Medications & Allergies Home Medications Reviewed patient Home Medication Reconciliation performed by pharmacy medication reconciliations system support technician and/or nursing. Patients Allergies have been reviewed. Allergies Allergies Coded Allergies morphine (Verified Allergy, Intermediate, HIVES, 05/26/17) Past Whjmknp-Aclxhj-Pgxhya Hx Past Med/Social Hx: Reviewed Nursing Past Med/Soc Hx Patient Social History Alcohol Use: Denies Use Recreational Drug Use: No Smoking Status: Current Everyday Smoker Type Used: Cigarettes, Smokeless Tobacco Physical Abuse Screen: No Sexual Abuse: No Recent Foreign Travel: No Contact w/other who traveled: No Recent Hopitalizations: No Recent Infectious Disease Expo: No Seasonal Allergies Seasonal Allergies: No Past Medical History Surgeries: Appendectomy, Gallbladder, Tubal Ligation Cardiac: Heart Murmur, Palpitations Reproductive: No Tubal Ligation Gastrointestinal: Gastroesophageal Reflux History of Blood Disorders: No Family History Hypertension Review of Systems Constitutional: see HPI EENTM: no symptoms reported Respiratory: no symptoms reported, other (stop smoking 5 years ago) Cardiovascular: see HPI Gastrointestinal: no symptoms reported Genitourinary: no symptoms reported Musculoskeletal: no symptoms reported Skin: no symptoms reported Psychiatric/Neurological: No Symptoms Reported Physical Exam Physical Exam Vital Signs Vital Signs - First Documented 04/28/18 23:23 Temp 97.7 Pulse 58 Resp 22 B/P (MAP) 149/83 (105) Pulse Ox 99 O2 Delivery Room Air Capillary Refill : Less Than 3 Seconds Height, Weight, BMI Height: 5'3.00" Weight: 177lbs. 3.0oz. 80.114818nw; 31.4 BMI Method:Stated General Appearance: No Apparent Distress Eyes: Bilateral Eye Normal Inspection HEENT: Normal ENT Inspection Neck: Normal Inspection Respiratory: Chest Non Tender, Lungs Clear, Normal Breath Sounds, No Accessory Muscle Use, No Respiratory Distress Cardiovascular: Regular Rate, Rhythm, No Edema, No Gallop, No JVD, No Murmur, Normal Peripheral Pulses Gastrointestinal: Normal Bowel Sounds, No Organomegaly, No Pulsatile Mass, Non Tender, Soft Back: Normal Inspection, No CVA Tenderness, No Vertebral Tenderness Neurologic/Psychiatric: Alert, Oriented x3, No Motor/Sensory Deficits, Normal Mood/Affect Skin: Normal Color, Warm/Dry Lymphatic: No Adenopathy Results Results/Procedures Labs Patient resulted labs reviewed. Assessment/Plan Admission Diagnosis Atypical chest pain Admission Status: Observation Clinical Quality Measures DVT/VTE Risk/Contraindication: Risk Factor Score Per Nursin RFS Level Per Nursing on Admit: 2=Moderate FRANK RAMÍREZ MD Apr 29, 2018 14:12
--- NOTE | 2018-04-29 14:51 | Consultation-Cardiology ---
HPI-Cardiology Cardiology Consultation: Date of Consultation 04/29/18 Time Seen by a Provider: 12:50 Date of Admission Attending Physician Reid Mcknight MD Admitting Physician Reid Mcknight MD Consulting Physician ELHAM HILL MD, MA, FACP, FACC, FSCAI, CCDS HPI: Chief Complaint: Chest discomfort 52 yo woman with chest discomfort: Onset was 6 weeks ago Frequency is nearly daily Mod in intensity Located in mid upper chest Radiates to shoulders and arms Last about 5 min Sometimes associated with shortness of breath No aggravating or relieving factors Has chronic slowly progressive shortness of breath. Denies palp or syncope or leg swelling or recent fever or chills Review of Systems-Cardiology Review of Systems Constitutional: No lightheadedness, No malaise, No weight loss, No weight gain Eyes: No vision change Ears/Nose/Throat: No ear discharge, No nasal drainage, No recent hearing loss Respiratory: As described under HPI Cardiovascular: As described under HPI Gastrointestinal: No constipation, No diarrhea, No nausea, No vomiting Genitourinary: No dysuria, No hematuria, No urine frequency changes Musculoskeletal: No back pain, No joint pain Skin: No rash, No ulcerations Psychiatric/Neurological: No focal weakness, No syncope Hematologic: No bleeding abnormalities EIM-Hrjqcv-Iroykv Hx Patient Social History Alcohol Use: Denies Use Recreational Drug Use: No Smoking Status: Current Everyday Smoker Type Used: Cigarettes, Smokeless Tobacco Recent Foreign Travel: No Recent Infectious Disease Expo: No Hospitalization with Isolation: Denies Physical Abuse Screen: No Sexual Abuse: No Past Medical History PMH As described under Assessment. Family Medical History Family Medical History: Does not report fam h/o or early CAD or SCD Allergies and Home Medications Allergies Coded Allergies: morphine (Verified Allergy, Intermediate, HIVES, 05/26/17) Home Medications Dicyclomine HCl 20 Mg Tablet, 20 MG PO BID, (Reported) Dicyclomine HCl 20 Mg Tablet, 20 MG PO 1200 PRN for STOMACH UPSET, (Reported) Metoprolol Tartrate 25 Mg Tablet, 12.5 MG PO BID, (Reported) TAKES 1/2 (25MG) TABLET Multivit with Calcium,Iron,Min 1 Each Tablet, 1 TAB PO DAILY, (Reported) Ranitidine HCl 150 Mg Tablet, 150 MG PO BID, (Reported) Soy Isofla/Blk Cohosh/Mag Bark 155 Mg Capsule, 155 MG PO DAILY, (Reported) Patient Home Medication List Home Medication List Reviewed: Yes Physical Exam-Cardiology Physical Exam Vital Signs/I&O 04/29/18 04/29/18 04/29/18 04/29/18 03:08 03:30 03:30 03:45 Temp 97.9 97.1 Pulse 58 52 59 Resp 13 16 18 B/P (MAP) 129/73 (91) 124/59 (80) 122/55 (77) Pulse Ox 99 99 100 98 O2 Delivery Room Air Room Air Room Air Room Air 04/29/18 04/29/18 04/29/18 04/29/18 04:15 04:17 04:30 07:00 Pulse 67 54 54 61 Resp 18 18 B/P (MAP) 138/71 (93) 122/59 (80) Pulse Ox 97 97 O2 Delivery Room Air Room Air 04/29/18 04/29/18 04/29/18 08:00 09:16 13:00 Temp 97.2 Pulse 59 63 Resp 18 B/P (MAP) 130/67 (88) Pulse Ox 97 O2 Delivery Room Air Room Air Capillary Refill : Less Than 3 Seconds Constitutional: AAO x 3, well-developed, well-nourished HEENT: No discharge; EOMI, hearing is well preserved; No xanthelasmas are seen Neck: carotid pulses are 2 + bilaterally, with good upstrokes Respiratory: No accessory muscle use; lungs clear to percussion, lungs clear to auscultation Cardiovascular: regular rate-rhythm, S1 and S2, systolic murmur (faint JASBIR at card base) Gastrointestinal: No tender; soft; No guarding, No rebound; audible bowel sounds Extremities: No clubbing, No cyanosis, No significant edema Neurologic/Psychiatric: oriented x 3, grossly intact, power is 5/5 both on sides Skin: No rash on exposed areas, No ulcerations on exposed areas Data Review Labs Laboratory Tests 04/28/18 23:18: White Blood Count 9.3, Red Blood Count 4.79, Hemoglobin 13.8, Hematocrit 40, Mean Corpuscular Volume 84, Mean Corpuscular Hemoglobin 29, Mean Corpuscular Hemoglobin Concent 34, Red Cell Distribution Width 13.3, Platelet Count 264, Mean Platelet Volume 9.8, Neutrophils (%) (Auto) 55, Lymphocytes (%) (Auto) 35, Monocytes (%) (Auto) 8, Eosinophils (%) (Auto) 3, Basophils (%) (Auto) 0, Neutrophils # (Auto) 5.1, Lymphocytes # (Auto) 3.2, Monocytes # (Auto) 0.7, Eosinophils # (Auto) 0.3, Basophils # (Auto) 0.0, Prothrombin Time 11.5L, INR Comment 0.8, Activated Partial Thromboplast Time 29, Sodium Level 139, Potassium Level 3.8, Chloride Level 105, Carbon Dioxide Level 23, Anion Gap 11, Blood Urea Nitrogen 18, Creatinine 0.79, Estimat Glomerular Filtration Rate > 60 , BUN/Creatinine Ratio 23, Glucose Level 92, Calcium Level 9.9, Corrected Calcium 9.6, Magnesium Level 2.3, Total Bilirubin 0.3, Aspartate Amino Transf ( AST/SGOT) 23, Alanine Aminotransferase (ALT/SGPT) 26, Alkaline Phosphatase 71, Total Creatine Kinase 95, Creatine Kinase MB 0.9, Myoglobin 31.4, Troponin I < 0.028, B-Type Natriuretic Peptide < 10.0, Total Protein 7.3, Albumin 4.4, Amylase Level 67, Lipase 67, Serum Test, Qualitative NEGATIVE 04/29/18 06:02: White Blood Count 7.3, Red Blood Count 4.79, Hemoglobin 13.3, Hematocrit 40, Mean Corpuscular Volume 84, Mean Corpuscular Hemoglobin 28, Mean Corpuscular Hemoglobin Concent 33, Red Cell Distribution Width 13.4, Platelet Count 233, Mean Platelet Volume 10.0, Neutrophils (%) (Auto) 54, Lymphocytes (%) (Auto) 35 , Monocytes (%) (Auto) 8, Eosinophils (%) (Auto) 4, Basophils (%) (Auto) 0, Neutrophils # (Auto) 3.9, Lymphocytes # (Auto) 2.5, Monocytes # (Auto) 0.6, Eosinophils # (Auto) 0.3, Basophils # (Auto) 0.0, Prothrombin Time 12.6, INR Comment 0.9, Activated Partial Thromboplast Time 32, Sodium Level 139, Potassium Level 3.8, Chloride Level 107, Carbon Dioxide Level 23, Anion Gap 9, Blood Urea Nitrogen 14, Creatinine 0.68, Estimat Glomerular Filtration Rate > 60 , BUN/Creatinine Ratio 21, Glucose Level 89, Calcium Level 9.2, Corrected Calcium 9.3, Total Bilirubin 0.4, Aspartate Amino Transf (AST/SGOT) 21, Alanine Aminotransferase (ALT/SGPT) 24, Alkaline Phosphatase 63, Myoglobin 33.3, Troponin I < 0.028, Total Protein 6.3L, Albumin 3.9, Triglycerides Level 148, Cholesterol Level 193, LDL Cholesterol Direct 123, VLDL Cholesterol 30, HDL Cholesterol 51 Laboratory Tests 04/28/18 23:18 04/29/18 06:02 A/P-Cardiology Assessment/Admission Diagnosis Chest discomfort suggestive of unstable angina Chronic tobacco use (smoking cigs) Elevated BMI of approx 31 H/o palp for which she takes beta-blockers on a chronic basis H/o GERD Discussion and Recomendations * Given symptoms suggestive of unstable angina that are quite frequent and given her risk factors, we recommend card cath * I discussed the rationale, procedure, risks, benefits, potential complications , and alternatives of card cath and possible ad hoc cor intervention with her. She understands and wishes to proceed * We have advised immediate and complete smoking cessation * Further recs to be based on cath results and hosp course Clinical Quality Measures DVT/VTE Risk/Contraindication: Risk Factor Score Per Nursin RFS Level Per Nursing on Admit: 2=Moderate ELHAM HILL MD FACP FAC CCDS Apr 29, 2018 14:51
[2018-04-29] MEDS ORDERED: LIDOCAINE 1% INJ 20 ML 20 ML VIAL ONE (15:32)
[2018-04-29] MEDS ORDERED: NS IV 1000 ML 1,000 ML ONE (15:32)
[2018-04-29] MEDS ORDERED: HEParin (CATH LAB) 2,000 ML IV ONE (15:32)
[2018-04-29] MEDS ORDERED: fentaNYL INJECTION 100 MCG/2 ML AMP ONE (16:10)
[2018-04-29] MEDS ORDERED: MIDAZOLAM 5 MG/5 ML (VERSED) VIAL ONE (16:10)
[2018-04-29] MEDS ORDERED: NON-FORMULARY MEDICATION 1 EA EA (Dicyclomine HCl 20 MG) PO PRN (17:45)
[2018-04-29] MEDS ORDERED: HYDROcodone/APAP 5 MG/325 MG (LORTAB) TAB PO NR (18:15)
[2018-04-29] MEDS: NS IV 1000 ML 1,000 ML IV SCH (18:29)
[2018-04-29] MEDS ORDERED: DICYCLOMINE 10 MG (BENTYL) CAP PO PRN (18:30)
[2018-04-29] MEDS: meTOprolol TARTRATE 25 MG (LOPRESSOR) TABLET PO SCH (20:15)
[2018-04-29] MEDS: DICYCLOMINE 10 MG (BENTYL) CAP PO SCH (20:16)
[2018-04-29] MEDS: FAMOTIDINE 20 MG (PEPCID) TABLET PO SCH (20:16)
[2018-04-29] MEDS ORDERED: NON-FORMULARY MEDICATION 1 EA EA (Dicyclomine HCl 20 MG) PO SCH (21:00)
[2018-04-29] MEDS ORDERED: NON-FORMULARY MEDICATION 1 EA EA (Ranitidine HCl (Acid Reducer (RANITIDINE)) 150 MG) PO SCH (21:00)
[2018-04-29] MEDS ORDERED: ACETAMINOPHEN 325 MG TABLET PO PRN (23:15)
--- NOTE | 2018-04-29 23:17 | NUR ---
pt c/o headache. Dr Tate ordered Tylenol 560 mg Po Q4 PRN
[2018-04-30 00:16] VITALS: BP 124/76
--- NOTE | 2018-04-30 00:24 | CARDIAC CATHETERIZATION ---
DATE OF SERVICE: 04/29/2018 CARDIAC CATHETERIZATION REPORT The patient is a 52-year-old lady who has multiple coronary artery disease risk factors and who presented with symptoms of unstable angina. Cardiac catheterization was carried out after having obtained informed consent. PROCEDURE: She was brought to the cardiac catheterization laboratory in a fasting state. Right groin was prepared and draped in usual sterile fashion. A 1% lidocaine for local anesthesia. Modified Seldinger technique was used to advance a 5-Indonesian sheath in the right femoral artery. A 5-Indonesian JL3.5 catheter used for left coronary angiography, 5-Indonesian JR4 catheter was used for right coronary angiography, 5-Indonesian pigtail catheter was used for left heart catheterization and left ventricular angiography. Pigtail was pulled back to the aortic arch and aortic arch angiography was performed. Pigtail was removed. Angiography of the right femoral artery was carried out through the sheath. The site of sheath insertion did not appear suitable for device closure. She was transferred to the floor for manual sheath removal. She tolerated the procedure well. HEMODYNAMICS: Left ventricular end-diastolic pressure following coronary angiography was 12 mmHg. There was no significant pressure gradient on pullback across the aortic valve. LEFT VENTRICULAR ANGIOGRAPHY: Left ventricular angiography was carried out in the right anterior oblique projection. Global left ventricular systolic function normal. No regional wall abnormalities seen. Left ventricular ejection fraction is approximately 65%. There does not appear to be significant mitral regurgitation. AORTIC ARCH ANGIOGRAPHY: Aortic arch angiography did not indicate any significant thoracic aortic aneurysm or dissection. The neck arteries, to the extent visualized, do not have significant disease. CORONARY ANGIOGRAPHY: Left main coronary, left anterior descending artery, left circumflex artery, right coronary artery are all free of any angiographically significant disease. CONCLUSIONS: 1. No angiographically significant coronary artery disease. 2. Normal global left ventricular systolic function with ejection fraction 65%. 3. Normal left ventricular end-diastolic pressure. 4. No significant mitral regurgitation. 5. No evidence of thoracic aortic aneurysm or dissection. DISCUSSION AND RECOMMENDATIONS: Based on results of the study, chest discomfort does not appear to be of cardiac origin. Continuing risk factor modification is advised. She has been advised to refrain from smoking cigarettes. Job ID: [id number] DocumentID: [id number] Dictated Date: 04/29/2018 17:32:40 Vacuum Pan Tender Date: 04/30/2018 00:23:50 Dictated By: ELHAM HILL MD, MA, FACP, FACC,
[2018-04-30] MEDS: 1/2 NS IV SOLUTION 1,000 ML IV SCH (02:15)
[2018-04-30] MEDS ORDERED: ACETAMINOPHEN 325 MG TABLET ONE (02:46)
[2018-04-30] MEDS: NS IV 1000 ML 1,000 ML IV SCH (03:22)
[2018-04-30 04:46] VITALS: BP 126/77
--- NOTE | 2018-04-30 05:14 | ED Chest Pain ---
General Chief Complaint: Cardiac/General Problems Stated Complaint: CHEST PAIN Nursing Triage Note: Pt arrived with cc of chest pain (paplpitations) with heartburn, upper middle abd pain with acid reflux. Pt was seen for it of last week when it started and they told pt it was severe acid reflux. Nursing Sepsis Screen: No Definite Risk Source: patient History of Present Illness Date Seen by Provider: Apr 28, 2018 Time Seen by Provider: 23:20 Initial Comments PT ARRIVES VIA POV FROM [facility] C/O CHEST PAIN STATES SHE HAD CHEST PAIN ON Friday04/23/18 WHILE DRIVING WENT TO [place] [facility] AND REPORTEDLY HAD NORMAL EKG, LAB, CXR. WAS DX WITH GERD, NO RX GIVEN. PT STATES SHE BEGAN HAVING PAIN AGAIN TODAY AROUND 1700 AT HOME STATES PAIN IS AT BASE OF NECK/THROAT AREA AND FEELS LIKE AN ICE PICK STABBING HER THERE PAIN RADIATES DOWN CENTER OF CHEST AND FEELS LIKE A TIGHTNESS, AND ALSO RADIATES OUT TO BOTH SIDES OF UPPER CHEST STATES PAIN COMES AND GOES, LASTS 30 SECONDS TO 5 MINUTES AT A TIME. STATES SHE HAS HAD 7-8 EPISODES SINCE 1700 TONIGHT, BUT IS NOT OCCURRING RIGHT NOW NO SHORTNESS OF BREATH HAS OCCASIONAL SWEATS, BUT IS ALSO PERIMENOPAUSAL AND HAS "HOT FLASHES" --LMP BEGINNING OF JANUARY, PERIOD BEFORE THAT WAS 3 MONTHS PRIOR) NO SWELLING IN LEGS/ FEET. NO PROLONGED SITTING, BUT DOES DRIVE ALOT--JUST NOT FOR SEVERAL HOURS CONTINUOUSLY NO NAUSEA/VOMITING NO PALPITATIONS NO DIZZINESS NO FEVER/COUGH OR URI SYMPTOMS STATES SHE FEELS LIKE SHE NEEDS TO CLEAR HER THROAT ALOT. NOTHING WORSENS OR IMPROVES SYMPTOMS NO HISTORY OF SIMILAR. PT HAS HISTORY OF HEART MURMUR/MVP AND IS ON METOPROLOL PCP: DR. FLORES/ [employer]RI[employer] SCIENCE HE[employer]ER ARSEN MCKEON--HAS AN APPOINTMENT THIS Friday04/29/18 AT 1830 FOR THIS PROBLEM. DID NOT FEEL LIKE SHE COULD WAIT THAT LONG. Allergies and Home Medications Allergies Coded Allergies: morphine (Verified Allergy, Intermediate, HIVES, 05/26/17) Home Medications Dicyclomine HCl 20 Mg Tablet, 20 MG PO BID, (Reported) Dicyclomine HCl 20 Mg Tablet, 20 MG PO 1200 PRN for STOMACH UPSET, (Reported) Metoprolol Tartrate 25 Mg Tablet, 12.5 MG PO BID, (Reported) TAKES 1/2 (25MG) TABLET Multivit with Calcium,Iron,Min 1 Each Tablet, 1 TAB PO DAILY, (Reported) Ranitidine HCl 150 Mg Tablet, 150 MG PO BID, (Reported) Soy Isofla/Blk Cohosh/Mag Bark 155 Mg Capsule, 155 MG PO DAILY, (Reported) Patient Home Medication List Home Medication List Reviewed: Yes Review of Systems Review of Systems Constitutional: see HPI, diaphoresis; No dizziness, No fever, No malaise, No weakness EENTM: See HPI; No Throat Pain; Other (FEELS LIKE SHE CONSTANTLY NEEDS TO CLEAR HER THROAT) Respiratory: No Symptoms Reported; Denies Cough, Denies Shortness of Air Cardiovascular: See HPI, Chest Pain; Denies Edema, Denies Irregular Heart Rate , Denies Lightheadedness, Denies Palpitations, Denies Syncope Gastrointestinal: No Symptoms Reported; Denies Abdominal Pain, Denies Nausea, Denies Vomiting Genitourinary: No Symptoms Reported Musculoskeletal: no symptoms reported; No back pain Skin: no symptoms reported; No rash Psychiatric/Neurological: No Symptoms Reported; Denies Numbness, Denies Paresthesia Endocrine: No Symptoms Reported Hematologic/Lymphatic: No Symptoms Reported Past [id number]-[id number] Hx Patient Social History Alcohol Use: Occasionally Uses Recreational Drug Use: No (THC TEEN) Smoking Status: Current Everyday Smoker (2 PPD, NOW DOWN TO 1/2 PPD) Type Used: Cigarettes, Smokeless Tobacco Recent Foreign Travel: No Contact w/Someone Who Travel: No Recent Infectious Disease Expo: No Recent Hopitalizations: No Physical Abuse: No Sexual Abuse: No Mistreated: No Fear: No Seasonal Allergies Seasonal Allergies: No Past Medical History Surgeries: Yes Appendectomy, Gallbladder, Tubal Ligation Respiratory: No Cardiac: Yes (MVP) Heart Murmur, Palpitations, Valvular Heart Disease Neurological: No : No Last Menstrual Period: Jan 19, 2018 Reproductive Disorders: 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 3.0oz. [id number]; 31.4 BMI Method:Stated General Appearance: No Apparent Distress, WD/WN, Other (FREQUENT CLEARING OF THROAT) HEENT: PERRL/EOMI, Normal ENT Inspection Neck: Full Range of Motion, Normal Inspection, Non Tender, Supple; No Carotid Bruit, No JVD Respiratory: Chest Non Tender, Normal Breath Sounds, No Accessory Muscle Use, No Respiratory Distress Cardiovascular: Regular Rate, Rhythm, No Edema, No JVD, No Murmur (NO MURMUR AUDIBLE AT THIS TIME), Normal Peripheral Pulses Gastrointestinal: Normal Bowel Sounds, No Organomegaly, No Pulsatile Mass, Non Tender, Soft Extremity: Normal Capillary Refill, Normal Inspection, Normal Range of Motion, Non Tender, No Calf Tenderness, No Pedal Edema Neurologic/Psychiatric: Alert, Oriented x3, No Motor/Sensory Deficits, Normal Mood/Affect, protection consultant II-XII Norm as Tested Skin: Normal Color, Warm/Dry; No Rash Progress/Results/Core Measures Results/Orders Lab Results Laboratory Tests Test 04/28/18 23:18 Range/Units White Blood Count 9.3 4.3-11.0 10^3/uL Red Blood Count 4.79 4.35-5.85 10^6/uL Hemoglobin 13.8 11.5-16.0 G/DL Hematocrit 40 35-52 % Mean Corpuscular Volume 84 80-99 FL Mean Corpuscular Hemoglobin 29 25-34 PG Mean Corpuscular Hemoglobin Concent 34 32-36 G/DL Red Cell Distribution Width 13.3 10.0-14.5 % Platelet Count 264 130-400 10^3/uL Mean Platelet Volume 9.8 7.4-10.4 FL Neutrophils (%) (Auto) 55 42-75 % Lymphocytes (%) (Auto) 35 12-44 % Monocytes (%) (Auto) 8 0-12 % Eosinophils (%) (Auto) 3 0-10 % Basophils (%) (Auto) 0 0-10 % Neutrophils # (Auto) 5.1 1.8-7.8 X 10^3 Lymphocytes # (Auto) 3.2 1.0-4.0 X 10^3 Monocytes # (Auto) 0.7 0.0-1.0 X 10^3 Eosinophils # (Auto) 0.3 0.0-0.3 10^3/uL Basophils # (Auto) 0.0 0.0-0.1 10^3/uL Prothrombin Time 11.5 L 12.2-14.7 SEC INR Comment 0.8 0.8-1.4 Activated Partial Thromboplast Time 29 24-35 SEC Sodium Level 139 135-145 MMOL/L Potassium Level 3.8 3.6-5.0 MMOL/L Chloride Level 105 98-107 MMOL/L Carbon Dioxide Level 23 21-32 MMOL/L Anion Gap 11 5-14 MMOL/L Blood Urea Nitrogen 18 7-18 MG/DL Creatinine 0.79 0.60-1.30 MG/DL Estimat Glomerular Filtration Rate > 60 BUN/Creatinine Ratio 23 Glucose Level 92 70-105 MG/DL Calcium Level 9.9 8.5-10.1 MG/DL Corrected Calcium 9.6 8.5-10.1 MG/DL Magnesium Level 2.3 1.8-2.4 MG/DL Total Bilirubin 0.3 0.1-1.0 MG/DL Aspartate Amino Transf (AST/SGOT) 23 5-34 U/L Alanine Aminotransferase (ALT/SGPT) 26 0-55 U/L Alkaline Phosphatase 71 40-136 U/L Total Creatine Kinase 95 29-168 U/L Creatine Kinase MB 0.9 <6.6 NG/ML Myoglobin 31.4 10.0-92.0 NG/ML Troponin I < 0.028 <0.028 NG/ML B-Type Natriuretic Peptide < 10.0 <100.0 PG/ML Total Protein 7.3 6.4-8.2 GM/DL Albumin 4.4 3.2-4.5 GM/DL Amylase Level 67 25-125 U/L Lipase 67 8-78 U/L Serum Test, Qualitative NEGATIVE NEGATIVE My Orders Orders - SEAN BERGER DO Cbc With Automated Diff (04/28/18 23:27) Magnesium (04/28/18 23:27) Chest 1 View, Ap/Pa Only (04/28/18 23:27) Ekg Tracing (04/28/18 23:27) Cardiac Profile 1 (04/28/18 23:27) Comprehensive Metabolic Panel (04/28/18 23:27) Myoglobin Serum (04/28/18 23:27) Protime With Inr (04/28/18 23:27) Partial Thromboplastin Time (04/28/18 23:27) O2 (04/28/18 23:27) Monitor-Rhythm Ecg Trace Only (04/28/18 23:27) Lipid Panel (04/29/18 06:00) Aspirin Chewable Tablet (Baby Aspirin Ch (04/28/18 23:30) Nitroglycerin 0.4 Mg Btl 25's (Nitrostat (04/28/18 23:30) Saline Lock/Iv-Start (04/28/18 23:27) Creatine Kinase (04/28/18 23:27) Creatine Kinase Mb (04/28/18 23:) Lipase (04/28/18 23:) Amylase (04/28/18 23:27) BNP (04/28/18 23:27) Ct Angio Chest W (04/29/18 00:18) Hcg,Qualitative Serum (04/29/18 00:18) Iohexol Injection (Omnipaque 350 Mg/Ml 1 (04/29/18 00:30) Ns (Ivpb) (Sodium Chloride 0.9% Ivpb Bag (04/29/18 00:30) Contrast Received (Contrast Received) (04/29/18 00:30) Pantoprazole Injection (Protonix Injecti (04/29/18 02:00) Ketorolac Injection (Toradol Injection) (04/29/18 02:00) Vital Signs/I&O 04/28/18 04/29/18 23:23 00:00 Temp 97.7 Pulse 58 Resp 22 B/P (MAP) 149/83 (105) Pulse Ox 99 99 O2 Delivery Room Air Room Air Blood Pressure Mean: 93 Progress Progress Note : Progress Note PT STATES SHE HAD A COUPLE OF BRIEF EPISODES OF PAIN DURING ER STAY, BUT DID NOT REPORT TO ANY STAFF WHEN SHE WAS HAVING THEM VITALS STABLE AND OTHERWISE UNEVENTFUL STAY WITH NO DETERIORATION IN CONDITION DURING ER STAY Initial ECG Impression Date: Apr 28, 2018 Initial ECG Impression Time: 23:50 Initial ECG Rate: 55 Initial ECG Rhythm: Normal Sinus Diagnostic Imaging Comments CXR--NO ACUTE PROCESS, PENDING RADIOLOGIST REVIEW CT CHEST ANGIOGRAM--NO ACUTE PROCESS, PER [facility] VIA FAX @ [phone] Reviewed: Reviewed by Me Departure Communication (Admissions) 0200--SPOKE WITH DR. RAMÍREZ, HOSPITALIST TRACK WATCHMAN. ACCEPTS PT FOR ADMIT. Impression Primary Impression: Chest pain Disposition: ADMITTED INPATIENT Condition: Stable Admissions Decision to Admit Reason: Admit from ER (General) Decision to Admit/Date: Apr 29, 2018 Time/Decision to Admit Time: 02:00 Departure-Patient Inst. Referrals: ARSEN MCKEON APRN (Family) Primary Care Physician CARRINGTON FLORES MD (PCP) Primary Care Physician SEAN BERGER DO Apr 30, 2018 05:14
[2018-04-30] MEDS ORDERED: MULTIVIT W/MINERALS TAB (THERAGRAN M) PO SCH (07:00)
[2018-04-30 08:00] VITALS: BP 137/69
[2018-04-30] MEDS: meTOprolol TARTRATE 25 MG (LOPRESSOR) TABLET PO SCH (08:35)
[2018-04-30] MEDS: DICYCLOMINE 10 MG (BENTYL) CAP PO SCH (08:35)
[2018-04-30] MEDS: FAMOTIDINE 20 MG (PEPCID) TABLET PO SCH (08:35)
[2018-04-30] MEDS ORDERED: NON-FORMULARY MEDICATION 1 EA EA (Multivit with Calcium,Iron,Min (Women's Daily Formula) 1 PO SCH (09:00)
[2018-04-30] MEDS ORDERED: BLK COHOSH PO SCH (09:00)
[2018-04-30] MEDS ORDERED: [UNRECOGNIZED DRUG - OTHER] PO SCH (09:00)
[2018-04-30] MEDS ORDERED: SOY ISOFLA PO SCH (09:00)
[2018-04-30] MEDS ORDERED: MAG BARK PO SCH (09:00)
[2018-04-30] MEDS ORDERED: PANTOPRAZOLE 40 MG (PROTONIX) TAB PO SCH (09:00)
--- NOTE | 2018-04-30 09:02 | Progress Note-Cardiology ---
Cardiology SOAP Progress Note Subjective: Sitting up in bed eating morning meal. Denies any c/o right groin pain. No c/o palpitations, syncope or near syncope. Objective: I&O/Vital Signs 04/30/18 04/30/18 04/30/18 04/30/18 04:46 07:09 08:00 08:00 Temp 98.3 98.2 Pulse 62 53 60 Resp 18 18 B/P (MAP) 126/77 (93) 137/69 (91) Pulse Ox 94 97 O2 Delivery Room Air Room Air Room Air 04/30/18 10:45 B/P (MAP) 04/30/18 00:00 Intake Total 980 ml Output Total 1850 ml Balance -870 ml Weight (Pounds): 177 Weight (Ounces): 3.0 Weight (Calculated Kilograms): 80.649737 Side: right Groin site without hematoma: Yes Condition: DP/PT pulses palpable, extremity w/d/p Bruising: mild bruising Constitutional: AAO x 3, well-developed, well-nourished Respiratory: No accessory muscle use; lungs clear to percussion, lungs clear to auscultation Cardiovascular: regular rate-rhythm, S1 and S2, systolic murmur (faint JASBIR at card base) Gastrointestional: No tender; soft; No guarding, No rebound; audible bowel sounds Extremities: No clubbing, No cyanosis, No significant edema Neurologic/Psychiatric: oriented x 3, grossly intact, power is 5/5 both on sides Skin: No rash on exposed areas, No ulcerations on exposed areas Results/Procedures: Labs Procedures S/P cardiac cath on 04-29-18. Please refer to Dr. Rojas's cardiac cath for results. A/P: Assessment: Cardiac cath of 04-29-18: No angiographically significant coronary artery disease. Normal global left ventricular systolic function with ejection fraction 65%. Normal left ventricular end-diastolic pressure. No significant mitral regurgitation. No evidence of thoracic aortic aneurysm or dissection. Chest pain of undetermined etiology - does not appear cardiac in origin based on aforementioned cardiac cath Chronic tobacco use (smoking cigs) Elevated BMI of approx 31 H/o palp for which she takes beta-blockers on a chronic basis - followed by Dr. Linares H/o GERD Plan: * Results of cardiac cath discussed * Based on results of cardiac cath chest discomfort does not appear cardiac in origin - advise f/u with PCP for further investigation into other possible non- cardiac causes * We have advised immediate and complete smoking cessation * OK to discharge home from cardiac stand point * Risk factor modification advised Physician Assessment Physician Assessment No cp or palp or syncope or shortness of breath or groin/leg discomfort. Wishes to go home Lungs: clear Cor: reg Ext: no c/c/e; no groin hematom; mild groin bruising; palpable peripheral pulses A&R * As documented in our note that I updated (italics) and as noted below * I again reviewed with her and her the findings of CV w/u * Risk factor mod reviewed. We advised her to quit smoking ALAINA ZHANG Apr 30, 2018 09:02 ELHAM ROJAS MD FACP FAC CCDS Apr 30, 2018 13:56
--- NOTE | 2018-04-30 10:01 | Discharge Summary-Hospitalist ---
Diagnosis/Chief Complaint Date of Admission Apr 29, 2018 at 02:00 Date of Discharge Discharge Date: Apr 30, 2018 Admission Diagnosis Atypical chest pain Discharge Diagnosis (1) S/P cardiac cath Status: Acute (2) Chest pain Status: Resolved (3) GERD (gastroesophageal reflux disease) Status: Chronic Discharge Summary Discharge Physical Exam Allergies: Coded Allergies: morphine (Verified Allergy, Intermediate, HIVES, 05/26/17) Vitals & I&Os Vital Signs Date Time Temp Pulse Resp B/P (MAP) Pulse Ox O2 Delivery O2 Flow Rate FiO2 04/30/18 10:45 04/30/18 08:00 Room Air 04/30/18 08:00 98.2 60 18 97 General Appearance: No Apparent Distress, WD/WN Respiratory: Chest Non Tender, Lungs Clear, Normal Breath Sounds, No Accessory Muscle Use, No Respiratory Distress Cardiovascular: Regular Rate, Rhythm, No Edema, No Gallop, No JVD, No Murmur, Normal Peripheral Pulses Neurologic/Psychiatric: Alert, Oriented x3, No Motor/Sensory Deficits, Normal Mood/Affect Hospital Course Hospital course: Patient was admitted for chest pain due to cardiac risk factors and symptoms she underwent cardiac catheterization that was normal. Patient was discharged home to continue current medications. Labs (last 24 hrs) Patient resulted labs reviewed. 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 Clinical Quality Measures DVT/VTE Risk/Contraindication: Risk Factor Score Per Nursin RFS Level Per Nursing on Admit: 2=Moderate Problem Qualifiers (1) Chest pain: Qualified Codes: R07.89 - Other chest pain (2) GERD (gastroesophageal reflux disease): Esophagitis presence: without esophagitis Qualified Codes: K21.9 - Gastro- esophageal reflux disease without esophagitis VIVIANA PETERSON DO Apr 30, 2018 10:00
== END 2018-04-30 10:45 | disposition home or self-care (01) ==
LOC: EDUNIT# 22:53 → ER 22:55 → CATH 22:56 → 4TH 22:56 → UNDOADMOB 04-29 02:00 → CATH 04-30 10:45 → UNDODISOB 04-30 10:45
PROVIDERS: ATTEND Internal Medicine
DX: R07.9 Chest pain, unspecified (principal); K21.9 Gastro-esophageal reflux disease without esophagitis; Z79.899 Other long term (current) drug therapy; F17.210 Nicotine dependence, cigarettes, uncomplicated; R00.2 Palpitations; Z88.5 Allergy status to narcotic agent; I38 Endocarditis, valve unspecified; R01.1 Cardiac murmur, unspecified; K58.9 Irritable bowel syndrome, unspecified
CPT/HCPCS: 36221; 36415; 71045; 71275; 80053; 80061; 82150; 82550; 82553; 83690; 83735; 83874; 83880; 84484; 84703; 85025; 85610; 85730; 93005; 93041; 93306; 93458; 96374; 96375

== ENCOUNTER 2019-06-07 10:37 | Emergency (ER) | payer OTHER ==
[~2019-06-07] VITALS: Ht 160 cm; Wt 73.8 kg
[~2019-06-07 10:37] MED LIST changes: +OMEP40CA27 PO; -OMEP40CA36 PO; +RANI150T90 PO; -TAMS0.4C98 PO; +TMSL.4C PO
[2019-06-07] MEDS ORDERED: KETOROLAC 30 MG/ML VIAL ONE (10:58)
[2019-06-07 11:12] LABS: BILIRUBIN,URINE NEGATIVE (NEGATIVE); CLARITY,URINE CLEAR; COLOR,URINE YELLOW; GLUCOSE, URINE (UA) NEGATIVE (NEGATIVE); KETONES,URINE 3+ (NEGATIVE); LEUKOCYTE ESTERASE ,URINE NEGATIVE (NEGATIVE); NITRITE,URINE NEGATIVE (NEGATIVE); PH,URINE 5.5 (5-9); PROTEIN,URINE TRACE (NEGATIVE)
[2019-06-07] MEDS ORDERED: KETOROLAC 30 MG/ML VIAL IVP ONE (11:15)
[2019-06-07 11:31] LABS: BACTERIA,URINE FEW /HPF; SQUAMOUS EPITHELIAL CELL,UR 25-50 /HPF; WBC,URINE 0-2 /HPF
--- NOTE | 2019-06-07 11:40 | ED Abdominal Pain ---
General Chief Complaint: - Urinary Stated Complaint: LOWER R BACK PAIN Nursing Triage Note: pt amb to rm 6 with complaint of right lower back pain. pt states feels like it is a kidney stone. states pain started roughly hour and a half ago. Sepsis Screen: No Definite Risk Source of Information: Patient, Spouse Exam Limitations: No Limitations History of Present Illness Date Seen by Provider: Jun 07, 2019 Time Seen by Provider: 11:20 Initial Comments Patient presents ER by private conveyance with her and chief complaint that she started to have some dysuria and right lower abdominal and right back and flank pain starting around 7:30 this morning. She says it feels identical to the last time she passed a kidney stone. She has not noticed any hematuria. She's not having any fevers but she is having some chills. She had nausea with the pain but now she is not having any nausea. She's had appendectomy, cholecyst ectomy, bilateral tubal ligation in the past. She's having no diarrhea or constipation. Her noted that she was breathing rapidly when she arrived in her fingertips were bluish. She denies a history of anxiety attacks. Allergies and Home Medications Allergies Coded Allergies: morphine (Verified Allergy, Intermediate, HIVES, 05/26/17) Home Medications Dicyclomine HCl 20 Mg Tablet, 20 MG PO BID, (Reported) Dicyclomine HCl 20 Mg Tablet, 20 MG PO 1200 PRN for STOMACH UPSET, (Reported) Metoprolol Tartrate 25 Mg Tablet, 12.5 MG PO BID, (Reported) TAKES 1/2 (25MG) TABLET Multivit with Calcium,Iron,Min 1 Each Tablet, 1 TAB PO DAILY, (Reported) Ranitidine HCl 150 Mg Tablet, 150 MG PO BID, (Reported) Soy Isofla/Blk Cohosh/Mag Bark 155 Mg Capsule, 155 MG PO DAILY, (Reported) Patient Home Medication List Home Medication List Reviewed: Yes Review of Systems Review of Systems Constitutional: chills; No diaphoresis; fever (subjective); No malaise EENTM: No Blurred Vision, No Double Vision Respiratory: Denies Cough, Denies Orthopnea Cardiovascular: Denies Chest Pain, Denies Irregular Heart Rate, Denies Lightheadedness Gastrointestinal: See HPI, Abdominal Pain; Denies Constipated, Denies Diarrhea; Nausea; Denies Poor Fluid Intake, Denies Vomiting Genitourinary: Denies Burning, Denies Discharge Musculoskeletal: see HPI, back pain (right flank); No joint pain Skin: see HPI; No pruritus, No rash Psychiatric/Neurological: Denies Anxiety, Denies Depressed All Other Systems Reviewed Negative Unless Noted: Yes Past Qckrasq-Ofvetq-Ggwqsv Hx Patient Social History Alcohol Use: Occasionally Uses Recreational Drug Use: No Smoking Status: Former Smoker Type Used: Cigarettes, Smokeless Tobacco Former Smoker, Quit: Jun 04, 2019 Recent Foreign Travel: No Contact w/Someone Who Travel: No Recent Infectious Disease Expo: No Recent Hopitalizations: No Immunizations Up To Date Tetanus Booster (TDap): Unknown PED Vaccines UTD: Yes Seasonal Allergies Seasonal Allergies: No Past Medical History Surgeries: Yes Appendectomy, Gallbladder, Tubal Ligation Respiratory: No Cardiac: Yes (MVP) Heart Murmur, Palpitations, Valvular Heart Disease Neurological: No 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 3.0oz. [id number]; 28.00 BMI Method:Stated General Appearance: WD/WN, mild distress HEENT: PERRL/EOMI, pharynx normal Neck: full range of motion, supple, normal inspection Respiratory: lungs clear, normal breath sounds, no respiratory distress, no accessory muscle use Cardiovascular: normal peripheral pulses, regular rate, rhythm Peripheral Pulses: 2+ Radial Pulses (R), 2+ Radial Pulses (L) Gastrointestinal: normal bowel sounds, non tender, soft, no organomegaly Extremities: normal range of motion, non-tender, normal inspection, normal ca pillary refill Back: normal inspection, CVA tenderness (R); No CVA tenderness (L) Neurologic/Psychiatric: alert, normal mood/affect, oriented x 3 Skin: normal color, warm/dry Progress/Results/Core Measures Results/Orders Lab Results Laboratory Tests Test 2/17/20 11:05 Range/Units Urine Color YELLOW Urine Clarity CLEAR Urine pH 5.5 5-9 Urine Specific [place] >=1.030 1.016-1.022 Urine Protein TRACE H NEGATIVE Urine Glucose (UA) NEGATIVE NEGATIVE Urine Ketones 3+ H NEGATIVE Urine Nitrite NEGATIVE NEGATIVE Urine Bilirubin NEGATIVE NEGATIVE Urine Urobilinogen 0.2 < = 1.0 MG/DL Urine Leukocyte Esterase NEGATIVE NEGATIVE Urine RBC (Auto) NEGATIVE NEGATIVE Urine RBC NONE /HPF Urine WBC 0-2 /HPF Urine Squamous Epithelial Cells 25-50 H /HPF Urine Crystals NONE /LPF Urine Bacteria FEW H /HPF Urine Casts NONE /LPF Urine Mucus SMALL H /LPF Urine Culture Indicated NO My Orders Orders - JACQUES VILLEGAS Ua Culture If Indicated (06/07/19 10:49) Ketorolac Injection (Toradol Injection) (06/07/19 10:58) Ketorolac Injection (Toradol Injection) (06/07/19 11:15) Ct Abd/Pelvis Wo(Kidney Stone) (06/07/19 11:09) Ed Iv/Invasive Line Start (06/07/19 11:09) Medications Given in ED Current Medications Medications Dose Ordered Sig/Jaspreet Route Start Time Stop Time Status Last Admin Dose Admin Ketorolac Tromethamine 30 mg ONCE ONCE IVP 06/07/19 11:15 06/07/19 11:16 DC 06/07/19 11:02 30 MG Vital Signs/I&O 06/07/19 10:47 Temp 36.8 Pulse 56 Resp 20 B/P (MAP) 136/78 (97) Pulse Ox 100 O2 Delivery Room Air Blood Pressure Mean: 97 Progress Progress Note : Time: 11:38 Progress Note High on the differential is a kidney stone, urinary tract infection/pyelonephritis, less likely gynecologic. We'll get a urinalysis and CT of the abdomen and pelvis without IV contrast. Suspect that her rapid breathing was due to her pain when she arrived. After 30 mg of IV Toradol she is no longer having any significant pain and no longer hyperventilated. Diagnostic Imaging Diagonstic Imaging: CT (without IV contrast, kidney stone study.) Plain Films/CT/US/NM/MRI: abdomen, pelvis Comments NAME: ABILIOMONO M [facility] REC#: [id number] PT STATUS: REG ER : 1965 PHYSICIAN: JACQUES VILLEGAS MD ADMIT DATE: 06/07/19/ER Draft Date of Exam:06/07/19 CT ABD/PELVIS WO(KIDNEY STONE) CT ABD/PELVIS WO(KIDNEY STONE) TECHNIQUE: Unenhanced CT imaging of the abdomen and pelvis was performed. 2-D reformats are created and submitted for interpretation. Automatic exposure controls were utilized to optimize patient dose. INDICATION: Right low back pain. COMPARISON: CT abdomen and pelvis of 05/26/2017 FINDINGS: Evaluation of the abdominal viscera is mildly limited without contrast. Lower chest: The lung bases are clear. No pericardial or pleural effusion. Peritoneum: No free intraperitoneal air or fluid. Liver and biliary system: Unenhanced liver is normal. Cholecystectomy. No biliary duct dilatation. Spleen and Pancreas: Spleen is normal. Unenhanced pancreas is grossly normal. Adrenals: Normal. tract: Mild right hydronephrosis and hydroureter due to a 3 mm stone at the right UVJ which is at least is partially passed in the urinary bladder. No left sided obstructive uropathy. There is a punctate 1 mm nonobstructing stone in the lower pole of the left kidney. The urinary bladder is decompressed. Uterus and ovaries are normal in appearance. GI tract: Stomach is decompressed. No bowel obstruction. No pericolonic inflammatory changes. Sigmoid colon diverticulosis without diverticulitis. Normal appendix. Vasculature and Lymph nodes: Normal caliber aorta. No abdominal or pelvic lymphadenopathy. Musculoskeletal: No concerning osseous lesion. IMPRESSION: 1. Mild right hydronephrosis due to a 3 mm partially obstructing stone at the right UVJ. Dictated on workstation # [id number] Dict: 06/07/19 1134 Trans: 06/07/19 1141 [facility] [id number] Interpreted by: SARWAT MORROW MD Electronically signed by: Reviewed: Reviewed by Me Departure Impression Primary Impression: Ureterolithiasis Disposition: 01 HOME, SELF-CARE Condition: Stable Departure-Patient Inst. Decision time for Depature: 12:00 Referrals: NO,LOCAL PHYSICIAN (PCP) Primary Care Physician SKYLA BARGER MD Patient Instructions: Kidney Stones (DC) Add. Discharge Instructions: Strain your urine to see if you can catch the stone. You may present to your [facility] doctor or the urologist Dr. Barger for testing if you wish. Based on the type of stone they can make recommendations as far as diet or medications to prevent stones from forming in the future. Drink lots of fluids. Caffeine is encouraged. Hydrocodone one tablet every 6 hours as needed for breakthrough pain. Ibuprofen 800 mg every 8 hours as needed for pain. Keflex one capsule twice a day for the next 7 days to prevent infection. Flomax 1 tablet every night to help facilitate passing the stone. Ondansetron one tablet under the tongue every 6 hours as needed for nausea or vomiting. All discharge instructions reviewed with patient and/or family. Voiced understanding. Scripts Tamsulosin HCl (Flomax) 0.4 Mg Cap 0.4 MG PO HS for 7 Days, #7 CAP 0 Refills Prov: JACQUES VILLEGAS 06/07/19 Cephalexin (Keflex) 500 Mg Capsule 500 MG PO BID for 7 Days, #14 CAP 0 Refills Prov: JACQUES VILLEGAS 06/07/19 Ondansetron (Ondansetron Odt) 4 Mg Tab.rapdis 4 MG PO Q6H PRN for NAUSEA/VOMITING, #8 TAB 0 Refills Prov: JACQUES VILLEGAS 06/07/19 Hydrocodone Bit/Acetaminophen (Hydrocodone/Acetaminophen 5/325mg Tablet) 1 Tab Tab 1-2 EACH PO Q6H PRN for PAIN-MODERATE MDD 10 for 3 Days, #14 TAB 0 Refills Prov: JACQUES VILLEGAS 06/07/19 Work/School Note: Family Work Note, Patient Received Medical Care In the Emergency Department On: Jun 07, 2019 Patient Will Be Able to Return to Work/School On: Jun 08, 2019 Patient Restrictions: none Work Release Form Date Seen in the Emergency Department: Jun 07, 2019 Return to Work: Jun 08, 2019 Restrictions: No Restrictions JACQUES VILLEGAS Jun 07, 2019 11:40
[2019-06-07] MEDS ORDERED: ACHD5005 PO (12:06)
[2019-06-07] MEDS ORDERED: ONDA4TAB11 PO (12:06)
[2019-06-07] MEDS ORDERED: CEPH-507 PO (12:06)
[2019-06-07] MEDS ORDERED: TMSL.4C PO (12:06)
[2019-06-07 12:29] VITALS: BP 130/75
== END 2019-06-07 12:29 | disposition home or self-care (01) ==
LOC: EDUNIT# 10:37 → ER 10:38
DX: N13.2 Hydronephrosis with renal and ureteral calculous obstruction (principal); K21.9 Gastro-esophageal reflux disease without esophagitis; Z88.5 Allergy status to narcotic agent; Z87.891 Personal history of nicotine dependence; Z82.49 Family history of ischemic heart disease and other diseases of the circulatory system
CPT/HCPCS: 74176; 81000; 96374

== ENCOUNTER 2020-01-30 13:22 | Emergency (ER) | payer OTHER ==
[~2020-01-30] VITALS: Ht 160 cm; Wt 72.0 kg
[~2020-01-30 13:22] MED LIST changes: +ACHD5005 PO; +CEPH-507 PO; +ONDA4TAB11 PO
[2020-01-30 13:39] LABS: BILIRUBIN,URINE NEGATIVE (NEGATIVE); CLARITY,URINE CLEAR; COLOR,URINE YELLOW; GLUCOSE, URINE (UA) NEGATIVE (NEGATIVE); KETONES,URINE NEGATIVE (NEGATIVE); LEUKOCYTE ESTERASE ,URINE TRACE (NEGATIVE); NITRITE,URINE NEGATIVE (NEGATIVE); PH,URINE 5.5 (5-9); PROTEIN,URINE NEGATIVE (NEGATIVE)
[2020-01-30 13:46] LABS: BACTERIA,URINE TRACE /HPF; WBC,URINE RARE /HPF
[2020-01-30] MEDS ORDERED: CYCLOBENZAPRINE 10 MG (FLEXERIL) TAB PO STA (13:52)
[2020-01-30] MEDS ORDERED: CYCL10TA9 PO (13:56)
[2020-01-30] MEDS ORDERED: ACHD5005 PO (13:56)
--- NOTE | 2020-01-30 13:59 | ED Back Pain ---
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 DENIES INJURY Nursing Sepsis Screen: No Definite Risk History of Present Illness Date Seen by Provider: Jan 30, 2020 Time Seen by Provider: 13:40 Initial Comments 54-year-old female presents for acute low back pain,that began approximately 4 hours ago. She reports that she was pushing a heavy box of books in her garage when she felt a pulling sensation in her low back. She had acute pain and took Ibuprofen 400 mg with no improvement in her symptoms, She tried a heating pad as well. She denies any chronic history of back problems. She denies any bowel or bladder incontinence or retention. Location: Lumbar Spine, Paraspinous Muscles Timing/Duration: 1-3 Hours Severity: Moderate Radiation: Buttocks Method of Injury: Other Associated Symptoms: muscle spasms; No numbness in legs/feet, No tingling in legs/feet, No sensory/motor loss; lower back pain; No loss of bladder control, No loss of bowel control Allergies and Home Medications Allergies Coded Allergies: morphine (Verified Allergy, Intermediate, HIVES, 05/26/17) Home Medications Cephalexin 500 Mg Capsule, 500 MG PO BID Prescribed by: JACQUES VILLEGAS on 06/07/19 1206 Dicyclomine HCl 20 Mg Tablet, 20 MG PO BID, (Reported) Dicyclomine HCl 20 Mg Tablet, 20 MG PO 1200 PRN for STOMACH UPSET, (Reported) Hydrocodone Bit/Acetaminophen 1 Tab Tab, 1-2 EACH PO Q6H PRN for PAIN-MODERATE Prescribed by: JACQUES VILLEGAS on 06/07/19 120 Metoprolol Tartrate 25 Mg Tablet, 12.5 MG PO BID, (Reported) TAKES 1/2 (25MG) TABLET Multivit with Calcium,Iron,Min 1 Each Tablet, 1 TAB PO DAILY, (Reported) Ondansetron 4 Mg Tab.rapdis, 4 MG PO Q6H PRN for NAUSEA/VOMITING Prescribed by: JACQUES VILLEGAS on 06/07/19 120 Ranitidine HCl 150 Mg Tablet, 150 MG PO BID, (Reported) Soy Isofla/Blk Cohosh/Mag Bark 155 Mg Capsule, 155 MG PO DAILY, (Reported) Tamsulosin HCl 0.4 Mg Cap, 0.4 MG PO HS Prescribed by: JACQUES VILLEGAS on 06/07/19 1206 Patient Home Medication List Home Medication List Reviewed: Yes Review of Systems Constitutional: no symptoms reported, see HPI Musculoskeletal: see HPI, back pain, muscle pain, muscle cramps All Other Systems Reviewed Negative Unless Noted: Yes Past Npitvks-Mkwleh-Irqejf Hx Past Med/Social Hx: Reviewed Nursing Past Med/Soc Hx Patient Social History Alcohol Use: Rarely Uses Recreational Drug Use: No Smoking Status: Current Everyday Smoker Type Used: Cigarettes, Smokeless Tobacco Former Smoker, Quit: Jun 04, 2019 Recent Foreign Travel: No Contact w/Someone Who Travel: No Recent Infectious Disease Expo: No Recent Hopitalizations: No Physical Abuse: No Sexual Abuse: No Mistreated: No Fear: No Immunizations Up To Date Tetanus Booster (TDap): Unknown PED Vaccines UTD: Yes Seasonal Allergies Seasonal Allergies: No Past Medical History Surgeries: Yes Appendectomy, Gallbladder, Tubal Ligation Respiratory: No Cardiac: Yes (MVP) Heart Murmur, Palpitations, Valvular Heart Disease Neurological: No 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 3.0oz. 80.268409xo; 28.00 BMI Method:Stated General Appearance: No Apparent Distress, WD/WN Cardiovascular: Regular Rate, Rhythm, No Edema, No Murmur, Normal Peripheral Pulses Respiratory: Chest Non Tender, Lungs Clear, Normal Breath Sounds Back: Normal Inspection, Decreased Range of Motion, Muscle Spasm (secondary to pain), Other (ambulates with a steady gait, able to toe and he'll walk. Power V/V L4-S1. Positive SLR, bilateral. ) Extremity: Normal Capillary Refill, Normal Inspection, Normal Range of Motion, No Pedal Edema Neurologic/Psychiatric: Alert, Oriented x3, No Motor/Sensory Deficits, Normal Mood/Affect Skin: Normal Color, Warm/Dry Progress/Results/Core Measures Results/Orders Lab Results Laboratory Tests Test 01/30/20 13:30 Range/Units Urine Color YELLOW Urine Clarity CLEAR Urine pH 5.5 5-9 Urine Specific [place] 1.025 H 1.016-1.022 Urine Protein NEGATIVE NEGATIVE Urine Glucose (UA) NEGATIVE NEGATIVE Urine Ketones NEGATIVE NEGATIVE Urine Nitrite NEGATIVE NEGATIVE Urine Bilirubin NEGATIVE NEGATIVE Urine Urobilinogen 0.2 < = 1.0 MG/DL Urine Leukocyte Esterase TRACE H NEGATIVE Urine RBC (Auto) 1+ H NEGATIVE Urine RBC NONE /HPF Urine WBC RARE /HPF Urine Squamous Epithelial Cells 5-10 /HPF Urine Crystals NONE /LPF Urine Bacteria TRACE /HPF Urine Casts NONE /LPF Urine Mucus NEGATIVE /LPF Urine Culture Indicated NO My Orders Orders - DARIUS JENNINGS Ua Culture If Indicated (01/30/20 13:28) Vital Signs/I&O 01/30/20 13:33 Temp 36.5 Pulse 68 Resp 20 B/P (MAP) 142/78 (99) O2 Delivery Room Air Blood Pressure Mean: 99 Departure Impression Primary Impression: Lumbar sprain Qualified Codes: S33.5XXA - Sprain of ligaments of lumbar spine, initial encounter Additional Impression: Lumbosacral pain Disposition: 01 HOME, SELF-CARE Condition: Stable Departure-Patient Inst. Decision time for Depature: 13:55 Referrals: FRANCES CALVO MD (PCP/Family) Primary Care Physician Patient Instructions: Lumbar Muscle Strain (DC), Low Back Pain (DC) Add. Discharge Instructions: Alternate heat and ice to your low back. You may use icy hot or [place] balm patches to her low back. Take ibuprofen 800 mg every 8 hours. Take the hydrocodone prescription every 6-8 hours as needed first appear pain. Use the Flexeril every 8 hours as needed for muscle spasms. Follow-up with your primary care provider if symptoms are not improving or wor sen. Return to the emergency department for new, urgent health care needs. All discharge instructions reviewed with patient and/or family. Voiced understanding. Scripts Cyclobenzaprine HCl (Cyclobenzaprine HCl) 10 Mg Tablet 10 MG PO Q8H PRN for SPASMS, #15 TAB 0 Refills Prov: DARIUS JENNINGS 01/30/20 Work/School Note: Work Release Form Date Seen in the Emergency Department: Jan 30, 2020 Return to Work: Feb 02, 2020 Restrictions: No Restrictions Other Restrictions Listed Below: If symptoms do not improve, will need to see Primary care DARIUS JENNINGS Jan 30, 2020 13:59
[2020-01-30] MEDS ORDERED: HYDROcodone/APAP 5 MG/325 MG (LORTAB) TAB PO ONE (14:00)
[2020-01-30 14:04] VITALS: BP 0/0
== END 2020-01-30 14:04 | disposition home or self-care (01) ==
LOC: EDUNIT# 13:22 → ER 13:23
DX: S33.9XXA Sprain of unspecified parts of lumbar spine and pelvis, initial encounter (principal); K21.9 Gastro-esophageal reflux disease without esophagitis; Z82.49 Family history of ischemic heart disease and other diseases of the circulatory system; K58.9 Irritable bowel syndrome, unspecified; F17.290 Nicotine dependence, other tobacco product, uncomplicated; Z88.5 Allergy status to narcotic agent; X50.0XXA Overexertion from strenuous movement or load, initial encounter
CPT/HCPCS: 81000; 99283

== ENCOUNTER 2020-10-10 09:47 | Emergency (ER) | payer OTHER ==
[~2020-10-10] VITALS: Ht 160 cm; Wt 77.0 kg
[~2020-10-10 09:47] MED LIST changes: +CYCL10TA9 PO; -OMEP40CA27 PO; +OMEP40CA6 PO
[2020-10-10] MEDS ORDERED: ASPIRIN 81 MG CHEW (CHILDREN'S ASA) PO ONE (10:15)
[2020-10-10 10:17] LABS: BASOPHILS % (AUTO) 0 % (0-10); EOSINOPHILS # (AUTO) 0.1 10^3/uL (0.0-0.3); EOSINOPHILS % (AUTO) 2 % (0-10); HEMATOCRIT 44 % (35-52); HEMOGLOBIN 14.4 g/dL (11.5-16.0); LYMPHOCYTES # (AUTO) 2.2 10^3/uL (1.0-4.0); LYMPHOCYTES % (AUTO) 26 % (12-44); MEAN CORPUSCULAR HEMOGLOBIN 28 pg (25-34); MEAN CORPUSCULAR HGB CONC 33 g/dL (32-36); MEAN CORPUSCULAR VOLUME 86 fL (80-99); MEAN PLATELET VOLUME 10.2 fL (9.0-12.2); MONOCYTES # (AUTO) 0.6 10^3/uL (0.0-1.0); MONOCYTES % (AUTO) 8 % (0-12); NEUTROPHILS # (AUTO) 5.5 10^3/uL (1.8-7.8); NEUTROPHILS % (AUTO) 64 % (42-75); PLATELET COUNT 295 10^3/uL (130-400); WHITE BLOOD COUNT 8.6 10^3/uL (4.3-11.0)
[2020-10-10 10:18] LABS: BILIRUBIN,URINE NEGATIVE (NEGATIVE); CLARITY,URINE CLEAR; COLOR,URINE YELLOW; GLUCOSE, URINE (UA) NEGATIVE (NEGATIVE); KETONES,URINE NEGATIVE (NEGATIVE); LEUKOCYTE ESTERASE ,URINE NEGATIVE (NEGATIVE); NITRITE,URINE NEGATIVE (NEGATIVE); PROTEIN,URINE NEGATIVE (NEGATIVE)
--- NOTE | 2020-10-10 10:27 | ED Chest Pain ---
General Chief Complaint: Chest Pain Stated Complaint: CP Nursing Triage Note: TO ED PER EMS FROM WORK. WORKS FOR [employer]. 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 GONE WHEN EMS ARRIVED. NONE ON ADMIT. ALSO REPORTS HAS DIZZY SPELL LAST WEEK WAS SEEN BY PCP IN [facility] GIVEN MEDS. AND IS BEEN HAVING HEADACHE OFF AND ON FOR 1 MONTH Nursing Sepsis Screen: No Definite Risk Source: patient Exam Limitations: no limitations History of Present Illness Date Seen by Provider: Oct 10, 2020 Time Seen by Provider: 10:00 Initial Comments Patient to the ER by EMS from her job site where she works for [employer] and chief complaint at about 830, hour and a half prior to arrival she started to have these short spasmodic type, chest pains that were very severe radiating up and down her mid sternum deep. Not relieved by movement. No nausea. She did not take anything for the pain because it only lasted about 15 seconds and recurred about 4-5 times over a span of 30 minutes. Called 911 and was given 324 mg of aspirin on route by EMS. She does not have a personal history of coronary disease. She did have a similar episode in 2002 at [place] where she was noted to have an elevated troponin was kept overnight in the hospital and then allowed to go home. She says her mother and aunt have a history of Prinzmetal angina. No family history of coronary disease. She has a history of smoking 2 to 3 cigarettes/day with coffee. She does not have a history of hypertension, hyperlipidemia. She is known to Dr. Rojas and was briefly on metoprolol but does not take it anymore. Coronary angiogram [address] Gracia demonstrating no angiographically significant coronary disease. EF of 65%. No evidence of thoracic aortic aneurysm or dissection. Allergies and Home Medications Allergies Coded Allergies: morphine (Verified Allergy, Intermediate, HIVES, 05/26/17) Home Medications Cephalexin 500 Mg Capsule, 500 MG PO BID Prescribed by: JACQUES VILLEGAS on 06/07/19 1206 Cyclobenzaprine HCl 10 Mg Tablet, 10 MG PO Q8H PRN for SPASMS Prescribed by: DARIUS JENNINGS on 01/30/20 1356 Dicyclomine HCl 20 Mg Tablet, 20 MG PO BID, (Reported) Dicyclomine HCl 20 Mg Tablet, 20 MG PO 1200 PRN for STOMACH UPSET, (Reported) Hydrocodone Bit/Acetaminophen 1 Tab Tab, 1-2 EACH PO Q6H PRN for PAIN-MODERATE Prescribed by: JACQUES VILLEGAS on 06/07/19 1206 Hydrocodone/Acetaminophen 1 Each Tablet, 1 EACH PO Q6H PRN for PAIN-MODERATE (5- 7) Prescribed by: DARIUS JENNINGS on 01/30/20 1357 Metoprolol Tartrate 25 Mg Tablet, 12.5 MG PO BID, (Reported) TAKES 1/2 (25MG) TABLET Multivit with Calcium,Iron,Min 1 Each Tablet, 1 TAB PO DAILY, (Reported) Ondansetron 4 Mg Tab.rapdis, 4 MG PO Q6H PRN for NAUSEA/VOMITING Prescribed by: JACQUES VILLEGAS on 06/07/19 1206 Ranitidine HCl 150 Mg Tablet, 150 MG PO BID, (Reported) Soy Isofla/Blk Cohosh/Mag Bark 155 Mg Capsule, 155 MG PO DAILY, (Reported) Tamsulosin HCl 0.4 Mg Cap, 0.4 MG PO HS Prescribed by: JACQUES VILLEGAS on 06/07/19 1206 Patient Home Medication List Home Medication List Reviewed: Yes Review of Systems Review of Systems Constitutional: No chills, No diaphoresis EENTM: No Blurred Vision, No Double Vision Respiratory: Denies Cough, Denies Shortness of Air Cardiovascular: Chest Pain; Denies Lightheadedness Gastrointestinal: Denies Abdominal Pain, Denies Constipated, Denies Diarrhea, Denies Nausea Genitourinary: Denies Burning, Denies Discharge Musculoskeletal: No back pain, No joint pain Skin: No change in color, No dryness Psychiatric/Neurological: Denies Anxiety, Denies Depressed All Other Systems Reviewed Negative Unless Noted: Yes Past Liisvpe-Rkvyzm-Zelqmy Hx Patient Social History Alcohol Use: Occasionally Uses Smoking Status: Current Everyday Smoker Type Used: Cigarettes, Smokeless Tobacco Former Smoker, Quit: Jun 04, 2019 Recent Infectious Disease Expo: No Recent Hopitalizations: No Immunizations Up To Date Tetanus Booster (TDap): Unknown PED Vaccines UTD: Yes Seasonal Allergies Seasonal Allergies: No Past Medical History Surgeries: Yes Appendectomy, Gallbladder, Tubal Ligation Respiratory: No Cardiac: Yes (MVP) Heart Murmur, Palpitations, Valvular Heart Disease Neurological: No Reproductive Disorders: No 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 3.0oz. [id number]; 30.00 BMI Method:Stated General Appearance: WD/WN, Anxious HEENT: PERRL/EOMI, Pharynx Normal, Moist Mucous Membranes Neck: Full Range of Motion, Normal Inspection, Non Tender Respiratory: Chest Non Tender, Lungs Clear, Normal Breath Sounds, No Accessory Muscle Use, No Respiratory Distress Cardiovascular: Regular Rate, Rhythm, No Edema, Normal Peripheral Pulses Gastrointestinal: Normal Bowel Sounds, Non Tender, Soft Extremity: Normal Capillary Refill, Normal Inspection Neurologic/Psychiatric: Alert, Oriented x3 Skin: Normal Color, Warm/Dry Progress/Results/Core Measures Results/Orders Lab Results Laboratory Tests Test 10/10/20 10:05 10/10/20 10:07 10/10/20 10:40 10/10/20 12:41 Range/Units White Blood Count 8.6 4.3-11.0 10^3/uL Red Blood Count 5.13 H 3.80-5.11 10^6/uL Hemoglobin 14.4 11.5-16.0 g/dL Hematocrit 44 35-52 % Mean Corpuscular Volume 86 80-99 fL Mean Corpuscular Hemoglobin 28 25-34 pg Mean Corpuscular Hemoglobin Concent 33 32-36 g/dL Red Cell Distribution Width 13.9 10.0-14.5 % Platelet Count 295 130-400 10^3/uL Mean Platelet Volume 10.2 9.0-12.2 fL Immature Granulocyte % (Auto) 1 % Neutrophils (%) (Auto) 64 42-75 % Lymphocytes (%) (Auto) 26 12-44 % Monocytes (%) (Auto) 8 0-12 % Eosinophils (%) (Auto) 2 0-10 % Basophils (%) (Auto) 0 0-10 % Neutrophils # (Auto) 5.5 1.8-7.8 10^3/uL Lymphocytes # (Auto) 2.2 1.0-4.0 10^3/uL Monocytes # (Auto) 0.6 0.0-1.0 10^3/uL Eosinophils # (Auto) 0.1 0.0-0.3 10^3/uL Basophils # (Auto) 0.0 0.0-0.1 10^3/uL Immature Granulocyte # (Auto) 0.0 0.0-0.1 10^3/uL Urine Color YELLOW Urine Clarity CLEAR Urine pH 6.0 5-9 Urine Specific [place] 1.010 L 1.016-1.022 Urine Protein NEGATIVE NEGATIVE Urine Glucose (UA) NEGATIVE NEGATIVE Urine Ketones NEGATIVE NEGATIVE Urine Nitrite NEGATIVE NEGATIVE Urine Bilirubin NEGATIVE NEGATIVE Urine Urobilinogen 0.2 < = 1.0 MG/DL Urine Leukocyte Esterase NEGATIVE NEGATIVE Urine RBC (Auto) 2+ H NEGATIVE Urine RBC 2-5 H /HPF Urine WBC RARE /HPF Urine Squamous Epithelial Cells 2-5 /HPF Urine Crystals NONE /LPF Urine Bacteria TRACE /HPF Urine Casts NONE /LPF Urine Mucus NEGATIVE /LPF Urine Culture Indicated NO Urine Opiates Screen NEGATIVE NEGATIVE Urine Oxycodone Screen NEGATIVE NEGATIVE Urine Methadone Screen NEGATIVE NEGATIVE Urine Propoxyphene Screen NEGATIVE NEGATIVE Urine Barbiturates Screen NEGATIVE NEGATIVE Ur Tricyclic Antidepressants Screen NEGATIVE NEGATIVE Urine Phencyclidine Screen NEGATIVE NEGATIVE Urine Amphetamines Screen NEGATIVE NEGATIVE Urine Methamphetamines Screen NEGATIVE NEGATIVE Urine Benzodiazepines Screen NEGATIVE NEGATIVE Urine Cocaine Screen NEGATIVE NEGATIVE Urine Cannabinoids Screen NEGATIVE NEGATIVE Prothrombin Time 12.0 L 12.2-14.7 SEC INR Comment 0.9 0.8-1.4 Activated Partial Thromboplast Time 27 24-35 SEC Sodium Level 142 135-145 MMOL/L Potassium Level 4.2 3.6-5.0 MMOL/L Chloride Level 109 H 98-107 MMOL/L Carbon Dioxide Level 23 21-32 MMOL/L Anion Gap 10 5-14 MMOL/L Blood Urea Nitrogen 12 7-18 MG/DL Creatinine 0.65 0.60-1.30 MG/DL Estimat Glomerular Filtration Rate > 60 BUN/Creatinine Ratio 18 Glucose Level 96 70-105 MG/DL Calcium Level 9.4 8.5-10.1 MG/DL Corrected Calcium 9.2 8.5-10.1 MG/DL Magnesium Level 2.2 1.6-2.4 MG/DL Total Bilirubin 0.3 0.1-1.0 MG/DL Aspartate Amino Transf (AST/SGOT) 21 5-34 U/L Alanine Aminotransferase (ALT/SGPT) 29 0-55 U/L Alkaline Phosphatase 79 40-136 U/L Myoglobin 28.2 10.0-92.0 NG/ML Troponin I < 0.028 < 0.028 <0.028 NG/ML Total Protein 6.9 6.4-8.2 GM/DL Albumin 4.2 3.2-4.5 GM/DL Lipase 46 8-78 U/L My Orders Orders - JACQUES VILLEGAS Ua Culture If Indicated (10/10/20 10:05) Drug Screen Stat (Urine) (10/10/20 10:05) Continuous Ekg Monitoring (10/10/20 10:05) Ekg Tracing (10/10/20 10:05) Cbc With Automated Diff (10/10/20 10:05) Comprehensive Metabolic Panel (10/10/20 10:05) Troponin I (10/10/20 10:05) Chest 1 View, Ap/Pa Only (10/10/20 10:05) Protime With Inr (10/10/20 10:05) Partial Thromboplastin Time (10/10/20 10:05) O2 (10/10/20 10:05) Ed Iv/Invasive Line Start (10/10/20 10:05) Aspirin Chewable Tablet (Baby Aspirin Ch (10/10/20 10:15) Lipase (10/10/20 10:05) Magnesium (10/10/20 10:05) Myoglobin Serum (10/10/20 10:05) Troponin I (10/10/20 12:29) Vital Signs/I&O 10/10/20 10/10/20 09:52 13:38 Temp 36.8 Pulse 63 59 Resp 18 18 B/P (MAP) 167/94 (118) 130/81 Pulse Ox 97 98 O2 Delivery Room Air Blood Pressure Mean: 118 Progress Progress Note : Time: 10:28 Progress Note Coronary angio spasm possible. With her recent negative coronary angiogram it is unlikely she is having significant coronary artery disease. She is not having any symptoms at this time and has already been given aspirin. We will check some labs and urine and watch her on the monitor and I discussed the case with Dr. Campbell, cardiology. Initial ECG Impression Date: Oct 10, 2020 Initial ECG Impression Time: 09:56 Initial ECG Rate: 56 Initial ECG Rhythm: Normal Sinus Initial ECG Intervals: Normal Initial ECG Impression: Normal, Nonspecific Changes Comment Normal sinus rhythm without clinically relevant ST changes Diagnostic Imaging Diagonstic Imaging: Xray Plain Films/CT/US/NM/MRI: chest Comments NAME: MONO KNOX [facility] REC#: [id number] PT STATUS: REG ER : 1965 PHYSICIAN: JACQUES VILLEGAS MD ADMIT DATE: 10/10/20/ER Draft Date of Exam:10/10/20 CHEST 1 VIEW, AP/PA ONLY INDICATION: Chest pain COMPARISON: 04/28/2018. FINDINGS: Single frontal view of the chest demonstrates normal heart size and pulmonary vascularity. The lungs are well aerated and clear. No large pleural effusion or pneumothorax is seen. The visualized osseous structures show no acute abnormalities. IMPRESSION: 1. No acute cardiopulmonary process. Dictated on workstation # [id number] Dict: 10/10/20 1053 Trans: 10/10/20 1055 [id number] Interpreted by: EMBER SPRAGUE MD Electronically signed by: Reviewed: Reviewed by Me Consults : Consulting Physician: RALEIGH DIAS MD Consults Notes Discussed the case with Dr. Campbell and since she has a clean catheterization recently if her delta troponin is negative he would be fine with her going home pain-free and following up with Dr. Rojas, cardiology. Departure Impression Primary Impression: Chest pain Qualified Codes: R07.9 - Chest pain, unspecified Disposition: 01 HOME, SELF-CARE Condition: Stable Departure-Patient Inst. Decision time for Depature: 13:15 Referrals: ELHAM ROJAS MD FACP FACC CCDS FRANCES CALVO MD (PCP) Primary Care Physician Patient Instructions: Chest Pain, Adult ED Add. Discharge Instructions: Tylenol 1000 mg every 8 hours as necessary for pain or headache. Call Dr. Rojas's office and make a follow-up appointment for this week if possible. All discharge instructions reviewed with patient and/or family. Voiced unders tanding. Work/School Note: Work Release Form Date Seen in the Emergency Department: Oct 10, 2020 Return to Work: Oct 11, 2020 Restrictions: No Restrictions Copy Copies To 1: ELHAM ROJAS MD FACP FACC CCDS JACQUES VILLEGAS Oct 10, 2020 10:27
[2020-10-10 10:31] LABS: AMPHETAMINE SCREEN, URINE NEGATIVE (NEGATIVE); BARBITURATE SCREEN URINE NEGATIVE (NEGATIVE); BENZODIAZEPINES SCREEN URINE NEGATIVE (NEGATIVE); CANNABINOID SCREEN, URINE NEGATIVE (NEGATIVE); COCAINE SCREEN URINE NEGATIVE (NEGATIVE); METHADONE STAT NEGATIVE (NEGATIVE); METHAMPHETAMINE SCREEN URINE S NEGATIVE (NEGATIVE); OPIATE SCREEN URINE NEGATIVE (NEGATIVE); OXYCODONE STAT NEGATIVE (NEGATIVE); PROPOXYPHENE STAT NEGATIVE (NEGATIVE); TRICYCLIC ANTIDEPRESSANTS SCRE NEGATIVE (NEGATIVE)
[2020-10-10 10:35] LABS: BACTERIA,URINE TRACE /HPF; WBC,URINE RARE /HPF
--- NOTE | 2020-10-10 10:56 | Diagnostic Imaging Report ---
INDICATION: Chest pain COMPARISON: 04/28/2018. FINDINGS: Single frontal view of the chest demonstrates normal heart size and pulmonary vascularity. The lungs are well aerated and clear. No large pleural effusion or pneumothorax is seen. The visualized osseous structures show no acute abnormalities. IMPRESSION: 1. No acute cardiopulmonary process. Dictated by: Dictated on workstation # [id number]
[2020-10-10 11:12] LABS: ALBUMIN 4.2 GM/DL (3.2-4.5); CHLORIDE 109 MMOL/L (98-107); INR 0.9 (0.8-1.4); POTASSIUM 4.2 MMOL/L (3.6-5.0); SODIUM 142 MMOL/L (135-145)
[2020-10-10 11:13] LABS: CALCIUM 9.4 MG/DL (8.5-10.1)
[2020-10-10 11:14] LABS: GLUCOSE 96 MG/DL (70-105)
[2020-10-10 11:15] LABS: TOTAL PROTEIN 6.9 GM/DL (6.4-8.2)
[2020-10-10 11:16] LABS: BILIRUBIN,TOTAL 0.3 MG/DL (0.1-1.0); CARBON DIOXIDE 23 MMOL/L (21-32)
[2020-10-10 11:18] LABS: ALKALINE PHOSPHATASE 79 U/L (40-136); CREATININE SERUM 0.65 MG/DL (0.60-1.30); GFR ESTIMATED > 60
[2020-10-10 11:19] LABS: BUN/CREATININE RATIO 18
[2020-10-10 11:21] LABS: ALANINE AMINOTRANSFERASE 29 U/L (0-55); MAGNESIUM 2.2 MG/DL (1.6-2.4)
[2020-10-10 11:22] LABS: LIPASE 46 U/L (8-78)
[2020-10-10 13:38] VITALS: BP 130/81
== END 2020-10-10 13:33 | disposition home or self-care (01) ==
LOC: EDUNIT# 09:47 → ER 09:49
DX: R07.9 Chest pain, unspecified (principal); K21.9 Gastro-esophageal reflux disease without esophagitis; K58.9 Irritable bowel syndrome, unspecified; F17.210 Nicotine dependence, cigarettes, uncomplicated; Z79.899 Other long term (current) drug therapy
CPT/HCPCS: 36415; 71045; 80053; 80306; 81000; 83690; 83735; 83874; 84484; 85025; 85610; 85730; 93005

== ENCOUNTER 2020-10-20 23:47 | Emergency (ER) | payer OTHER ==
--- NOTE | 2020-10-21 00:28 | ED Chest Pain ---
General Chief Complaint: Chest Pain Stated Complaint: CP Source: patient Exam Limitations: no limitations History of Present Illness Date Seen by Provider: Oct 21, 2020 Time Seen by Provider: 00:15 Initial Comments Patient to the ER by [facility] from home with her chief complaint of chest pain starting about half an hour prior to arrival. Almost completely resolved by the time she arrived. At the time of this interviewers H&P the patient is no longer having any chest pain or discomfort just a feeling of weirdness in her chest. She did not take anything for the symptoms just loaded up in the car with her and came to the ER. She has a an appointment for an EKG October [address] Rojas and a stress test at the end of the month. She was here in the ER just a week ago with similar 15-second long bursts of pain. She has a family history of Prinzmetal angina. She is not having any shortness of air now. No nausea fever chills cough shortness of air diarrhea or constipation. Coronary angiogram [address] Rojas demonstrating no angiographically significant coronary disease and the EF of 65%. No evidence of thoracic aortic aneurysm or dissection. Allergies and Home Medications Allergies Coded Allergies: morphine (Verified Allergy, Intermediate, HIVES, 05/26/17) Home Medications Cephalexin 500 Mg Capsule, 500 MG PO BID Prescribed by: JACQUES VILLEGAS on 06/07/19 1206 Cyclobenzaprine HCl 10 Mg Tablet, 10 MG PO Q8H PRN for SPASMS Prescribed by: DARIUS JENNINGS on 01/30/20 1356 Dicyclomine HCl 20 Mg Tablet, 20 MG PO BID, (Reported) Dicyclomine HCl 20 Mg Tablet, 20 MG PO 1200 PRN for STOMACH UPSET, (Reported) Hydrocodone Bit/Acetaminophen 1 Tab Tab, 1-2 EACH PO Q6H PRN for PAIN-MODERATE Prescribed by: JACQUES VILLEGAS on 06/07/19 1206 Hydrocodone/Acetaminophen 1 Each Tablet, 1 EACH PO Q6H PRN for PAIN-MODERATE (5- 7) Prescribed by: DARIUS JENNINGS on 01/30/20 1357 Metoprolol Succinate 25 Mg Tab.er.24h, 50 MG PO DAILY Prescribed by: JACQUES VILLEGAS on 10/21/20 0510 Metoprolol Tartrate 25 Mg Tablet, 12.5 MG PO BID, (Reported) TAKES 1/2 (25MG) TABLET Multivit with Calcium,Iron,Min 1 Each Tablet, 1 TAB PO DAILY, (Reported) Ondansetron 4 Mg Tab.rapdis, 4 MG PO Q6H PRN for NAUSEA/VOMITING Prescribed by: JACQUES VILLEGAS on 06/07/19 1206 Ranitidine HCl 150 Mg Tablet, 150 MG PO BID, (Reported) Soy Isofla/Blk Cohosh/Mag Bark 155 Mg Capsule, 155 MG PO DAILY, (Reported) Tamsulosin HCl 0.4 Mg Cap, 0.4 MG PO HS Prescribed by: JACQUES VILLEGAS on 06/07/19 1206 Patient Home Medication List Home Medication List Reviewed: Yes Review of Systems Review of Systems Constitutional: No chills, No diaphoresis EENTM: No Blurred Vision, No Eye Pain Respiratory: Denies Cough, Denies Shortness of Air Cardiovascular: See HPI, Chest Pain; Denies Lightheadedness; Palpitations; Denies Syncope Gastrointestinal: Denies Constipated, Denies Diarrhea, Denies Nausea Genitourinary: Denies Burning, Denies Discharge, Denies Drainage Musculoskeletal: No back pain, No joint pain Skin: No change in hair/nails Psychiatric/Neurological: Denies See HPI; Anxiety All Other Systems Reviewed Negative Unless Noted: Yes Past Dehjvdg-Zcvoqt-Vwmicg Hx Patient Social History Tobacco Use?: No Use of E-Cig and/or Vaping dev: No Substance use?: No Immunizations Up To Date Tetanus Booster (TDap): Unknown PED Vaccines UTD: Yes Seasonal Allergies Seasonal Allergies: No Past Medical History Surgeries: Yes Appendectomy, Gallbladder, Tubal Ligation Respiratory: No Cardiac: Yes (MVP) Heart Murmur, Palpitations, Valvular Heart Disease Neurological: No Reproductive Disorders: 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 3.0oz. 80.579109zr; 30.00 BMI Method:Stated General Appearance: WD/WN, Anxious, Mild Distress HEENT: PERRL/EOMI, Pharynx Normal, Moist Mucous Membranes Neck: Normal Inspection, Non Tender Respiratory: No Chest Non Tender (Chest pain reproducible to palpation); Lungs Clear, Normal Breath Sounds, No Accessory Muscle Use, No Respiratory Distress Cardiovascular: Regular Rate, Rhythm, Normal Peripheral Pulses Gastrointestinal: Normal Bowel Sounds, No Organomegaly, Non Tender Extremity: Normal Capillary Refill, Normal Inspection, No Pedal Edema Neurologic/Psychiatric: Alert, Oriented x3 Skin: Normal Color, Warm/Dry Progress/Results/Core Measures Results/Orders Lab Results Laboratory Tests Test 10/21/20 00:48 10/21/20 04:30 Range/Units White Blood Count 8.5 4.3-11.0 10^3/uL Red Blood Count 5.00 3.80-5.11 10^6/uL Hemoglobin 14.0 11.5-16.0 g/dL Hematocrit 43 35-52 % Mean Corpuscular Volume 86 80-99 fL Mean Corpuscular Hemoglobin 28 25-34 pg Mean Corpuscular Hemoglobin Concent 33 32-36 g/dL Red Cell Distribution Width 13.4 10.0-14.5 % Platelet Count 245 130-400 10^3/uL Mean Platelet Volume 10.2 9.0-12.2 fL Immature Granulocyte % (Auto) 0 % Neutrophils (%) (Auto) 57 42-75 % Lymphocytes (%) (Auto) 32 12-44 % Monocytes (%) (Auto) 8 0-12 % Eosinophils (%) (Auto) 2 0-10 % Basophils (%) (Auto) 1 0-10 % Neutrophils # (Auto) 4.8 1.8-7.8 10^3/uL Lymphocytes # (Auto) 2.8 1.0-4.0 10^3/uL Monocytes # (Auto) 0.7 0.0-1.0 10^3/uL Eosinophils # (Auto) 0.2 0.0-0.3 10^3/uL Basophils # (Auto) 0.0 0.0-0.1 10^3/uL Immature Granulocyte # (Auto) 0.0 0.0-0.1 10^3/uL Prothrombin Time 12.8 12.2-14.7 SEC INR Comment 0.9 0.8-1.4 Activated Partial Thromboplast Time 30 24-35 SEC D-Dimer < 0.27 0.00-0.49 UG/ML Sodium Level 143 135-145 MMOL/L Potassium Level 3.8 3.6-5.0 MMOL/L Chloride Level 111 H 98-107 MMOL/L Carbon Dioxide Level 18 L 21-32 MMOL/L Anion Gap 14 5-14 MMOL/L Blood Urea Nitrogen 16 7-18 MG/DL Creatinine 0.62 0.60-1.30 MG/DL Estimat Glomerular Filtration Rate > 60 BUN/Creatinine Ratio 26 Glucose Level 112 H 70-105 MG/DL Calcium Level 9.2 8.5-10.1 MG/DL Corrected Calcium 9.1 8.5-10.1 MG/DL Magnesium Level 2.0 1.6-2.4 MG/DL Total Bilirubin 0.4 0.1-1.0 MG/DL Aspartate Amino Transf (AST/SGOT) 21 5-34 U/L Alanine Aminotransferase (ALT/SGPT) 24 0-55 U/L Alkaline Phosphatase 71 40-136 U/L Myoglobin 53.2 10.0-92.0 NG/ML Troponin I < 0.028 < 0.028 <0.028 NG/ML B-Type Natriuretic Peptide < 10.0 <100.0 PG/ML Total Protein 6.4 6.4-8.2 GM/DL Albumin 4.1 3.2-4.5 GM/DL Lipase 48 8-78 U/L My Orders Orders - NELLYJACQUES J Cbc With Automated Diff (10/21/20:23) Magnesium (10/21/20:23) Chest 1 View, Ap/Pa Only (10/21/20:23) Ekg Tracing (10/21/20:23) Comprehensive Metabolic Panel (10/21/20:23) Myoglobin Serum (10/21/20:23) Protime With Inr (10/21/20:) Partial Thromboplastin Time (10/21/20:23) O2 (10/21/20:) Monitor-Rhythm Ecg Trace Only (10/21/20:23) Ed Iv/Invasive Line Start (7/3/21 00:23) Lipase (10/21/20 00:23) BNP (10/21/20 00:23) Fibrin Degradation Products (10/21/20 00:23) Troponin I (10/21/20 00:23) Aspirin Chewable Tablet (Baby Aspirin Ch (10/21/20 00:30) Troponin I (10/21/20 03:45) Medications Given in ED Vital Signs/I&O 10/20/20 10/21/20 23:55 05:19 Temp 36.6 36.6 Pulse 74 53 Resp 16 16 B/P (MAP) 178/85 (116) 110/53 (116) Pulse Ox 99 O2 Delivery Room Air Progress Progress Note : Time: 00:26 Progress Note Vasospasm? She is not having symptoms now half an hour later. We will give her some aspirin and check some labs and get a chest x-ray. Initial ECG Impression Date: Oct 21, 2020 Initial ECG Impression Time: 00:04 Initial ECG Rate: 69 Initial ECG Rhythm: Normal Sinus Initial ECG Intervals: Normal Initial ECG Impression: Normal Initial ECG Comparisson: Unchanged Comment LVH. Normal sinus rhythm without clinically relevant ST elevation or depression. Diagnostic Imaging Diagonstic Imaging: Xray Plain Films/CT/US/NM/MRI: chest Comments Unchanged from 10/10/2020. No acute cardiopulmonary process on 1 view chest x- ray. [facility] [place] NAME: MONO KNOX [facility] REC#: [id number] PT STATUS: DEP ER : 1965 PHYSICIAN: JACQUES VILLEGAS MD ADMIT DATE: 10/20/20/ER Signed Date of Exam:10/21/20 CHEST 1 VIEW, AP/PA ONLY EXAMINATION: Chest radiograph, portable AP view. DATE: 10/21/2020 12:54 AM INDICATION: 55-year-old female, chest pain. COMPARISON: October 10, 2020. FINDINGS: Heart size and mediastinal contours are unchanged. There is no identified pneumothorax. There is no large pleural effusion. There is no identified focal airspace consolidation. IMPRESSION: No identified acute cardiopulmonary abnormality. Dictated by: Dictated on workstation # [id number] Dict: 10/21/20 0643 Trans: 10/21/[address] [facility] [id number] Interpreted by: VALDEMAR VELÁZQUEZ MD Electronically signed by: VALDEMAR VELÁZQUEZ MD 10/21/20824 Reviewed: Reviewed by Me Departure Impression Primary Impression: Chest pain Qualified Codes: R07.9 - Chest pain, unspecified Disposition: HOME, SELF-CARE Condition: Stable Departure-Patient Inst. Decision time for Depature: 05:08 Referrals: ELHAM ROJAS MD [facility] FRANCES CALVO MD (PCP) Primary Care Physician Patient Instructions: Troponin Test, Chest Pain, Adult ED Add. Discharge Instructions: Increase your metoprolol to 50 mg a day and follow-up with Dr. Rojas, cardiology. Return to the ER if your symptoms persist. All discharge instructions reviewed with patient and/or family. Voiced understanding. Scripts Metoprolol Succinate (Metoprolol Succinate) 25 Mg Tab.er.24h 50 MG PO DAILY for 14 Days, #30 TAB 0 Refills Prov: JACQUES VILLEGAS 10/21/20 Copy Copies To 1: ELHAM ROJAS MD [facility] JACQUES VILLEGAS Oct 21, 2020 00:28
[2020-10-21] MEDS ORDERED: ASPIRIN 81 MG CHEW (CHILDREN'S ASA) PO ONE (00:30)
[2020-10-21 00:53] LABS: BASOPHILS % (AUTO) 1 % (0-10); EOSINOPHILS # (AUTO) 0.2 10^3/uL (0.0-0.3); EOSINOPHILS % (AUTO) 2 % (0-10); HEMATOCRIT 43 % (35-52); LYMPHOCYTES # (AUTO) 2.8 10^3/uL (1.0-4.0); LYMPHOCYTES % (AUTO) 32 % (12-44); MEAN CORPUSCULAR HEMOGLOBIN 28 pg (25-34); MEAN CORPUSCULAR HGB CONC 33 g/dL (32-36); MEAN CORPUSCULAR VOLUME 86 fL (80-99); MEAN PLATELET VOLUME 10.2 fL (9.0-12.2); MONOCYTES # (AUTO) 0.7 10^3/uL (0.0-1.0); MONOCYTES % (AUTO) 8 % (0-12); NEUTROPHILS # (AUTO) 4.8 10^3/uL (1.8-7.8); NEUTROPHILS % (AUTO) 57 % (42-75); PLATELET COUNT 245 10^3/uL (130-400); WHITE BLOOD COUNT 8.5 10^3/uL (4.3-11.0)
[2020-10-21 01:07] LABS: ALBUMIN 4.1 GM/DL (3.2-4.5); CHLORIDE 111 MMOL/L (98-107); POTASSIUM 3.8 MMOL/L (3.6-5.0); SODIUM 143 MMOL/L (135-145)
[2020-10-21 01:08] LABS: CALCIUM 9.2 MG/DL (8.5-10.1)
[2020-10-21 01:09] LABS: GLUCOSE 112 MG/DL (70-105); TOTAL PROTEIN 6.4 GM/DL (6.4-8.2)
[2020-10-21 01:10] LABS: CARBON DIOXIDE 18 MMOL/L (21-32); INR 0.9 (0.8-1.4); PROTHROMBIN TIME PATIENT 12.8 SEC (12.2-14.7)
[2020-10-21 01:11] LABS: BILIRUBIN,TOTAL 0.4 MG/DL (0.1-1.0)
[2020-10-21 01:12] LABS: ALKALINE PHOSPHATASE 71 U/L (40-136)
[2020-10-21 01:13] LABS: CREATININE SERUM 0.62 MG/DL (0.60-1.30); GFR ESTIMATED > 60
[2020-10-21 01:14] LABS: BUN/CREATININE RATIO 26
[2020-10-21 01:16] LABS: ALANINE AMINOTRANSFERASE 24 U/L (0-55); LIPASE 48 U/L (8-78)
[2020-10-21] MEDS ORDERED: MTP25TSR PO (05:10)
[2020-10-21 05:19] VITALS: BP 110/53
--- NOTE | 2020-10-21 07:40 | Diagnostic Imaging Report ---
EXAMINATION: Chest radiograph, portable AP view. DATE: 10/21/2020 12:54 AM INDICATION: 55-year-old female, chest pain. COMPARISON: October 10, 2020. FINDINGS: Heart size and mediastinal contours are unchanged. There is no identified pneumothorax. There is no large pleural effusion. There is no identified focal airspace consolidation. IMPRESSION: No identified acute cardiopulmonary abnormality. Dictated by: Dictated on workstation # [id number]
== END 2020-10-21 05:19 | disposition home or self-care (01) ==
LOC: EDUNIT# 23:47 → ER 23:49
DX: R07.9 Chest pain, unspecified (principal); K21.9 Gastro-esophageal reflux disease without esophagitis; Z79.899 Other long term (current) drug therapy
CPT/HCPCS: 36415; 71045; 80053; 83690; 83735; 83874; 83880; 84484; 85025; 85379; 85610; 85730; 93005; 93041

== ENCOUNTER → 2020-10-30 | Outpatient (CLI) | payer OTHER ==
[~2020-10-30] MED LIST changes: +MTP25TSR PO
== END ==
LOC: CARD 09:00
PROVIDERS: ATTEND Internal Medicine Cardiovascular Disease
DX: R06.09 Other forms of dyspnea (principal)
CPT/HCPCS: 93306

== ENCOUNTER → 2020-11-21 | Outpatient (CLI) | payer OTHER ==
[~2020-11-21] MED LIST changes: +REGADENOSON 0.4 MG/5 ML SYR (LEXISCAN) IV ONE
[2020-11-21 10:47] VITALS: BP 145/76
== END ==
LOC: CARD 07:15
PROVIDERS: ATTEND Internal Medicine Cardiovascular Disease
DX: R06.09 Other forms of dyspnea (principal)
CPT/HCPCS: 78452; 93017; A9502